=== PATIENT | female | born 1950 | race Hispanic/Latino ===

== ENCOUNTER 2017-12-10 17:16 | Inpatient (IN) | payer MEDICARE, OTHER ==
[~2017-12-10] VITALS: Ht 160 cm; Wt 125.4 kg
[2017-12-10] MEDS ORDERED: SODIUM CHLORIDE 0.9% 1000ML 1,000 ML IV STA (17:21)
[2017-12-10] MEDS ORDERED: VANCOMYCIN 1GM/NS 250 ML 250 ML IV ONE (17:30)
[2017-12-10] MEDS ORDERED: ONDANSETRON HCL INJ 2 MG/ML VIAL IV PRN (17:30)
[2017-12-10] MEDS ORDERED: DILTIAZEM HCL 5 MG/ML 5 ML VIAL IV ONE (17:30)
[2017-12-10] MEDS ORDERED: IBUPROFEN 400 MG TAB PO PRN (17:30)
[2017-12-10] MEDS ORDERED: CEFTRIAXONE SOD 1 GM VIAL IV ONE (17:30)
[2017-12-10] MEDS ORDERED: DIPHENHYDRAMINE HCL INJ 50 MG/ML VIAL IV PRN (17:30)
[2017-12-10] MEDS ORDERED: NIFEDIPINE ER30 M1 PO (17:52)
[2017-12-10] MEDS ORDERED: HYDRALAZINE HCL25 MG PO (17:52)
[2017-12-10] MEDS ORDERED: WARFARIN SODIU2.5 MG PO (17:52)
[2017-12-10] MEDS ORDERED: FUROSEMIDE40 MG PO (17:52)
[2017-12-10] MEDS ORDERED: OMEPRAZOLE40 MG PO (17:52)
[2017-12-10] MEDS ORDERED: GABAPENTIN100 MG PO (17:52)
[2017-12-10] MEDS ORDERED: METOPROLOL TART50 MG PO (17:52)
[2017-12-10] MEDS ORDERED: ASPIRIN EC81 MG PO (17:52)
[2017-12-10 17:55] LABS: ABG HCO3 23 mmol/L (23-28); ABG PCO2 31 mmHg (41-51); ABG PH 7.48 (7.31-7.41); ABG PO2 66 mmHg (80-105)
[2017-12-10 17:59] LABS: BASOPHILS # (AUTO) 0.1 (0.0-0.1); BASOPHILS % 0.3 % (0.0-1.0); EOSINOPHILS # (AUTO) 0.2 (0.0-0.4); EOSINOPHILS % 0.9 % (0.0-6.0); LYMPHOCYTES # (AUTO) 3.1 (1.0-3.2); LYMPHOCYTES % 17.6 % (18.0-39.1); MEAN CORPUSCULAR HEMOGLOBIN 29.3 pg (28-32); MEAN CORPUSCULAR HGB CONC 32.5 g/dL (31-35); MEAN CORPUSCULAR VOLUME 90.1 fL (81-99); MONOCYTES # (AUTO) 0.6 (0.2-0.8); MONOCYTES % 3.4 % (4.4-11.3); NEUTROPHILS # (AUTO) 13.8 (2.1-6.9); NEUTROPHILS % 77.5 % (38.7-80.0); PLATELET COUNT 274 x10e3/uL (140-360); RED BLOOD COUNT 4.44 x10e6/uL (3.6-5.1)
[2017-12-10] MEDS ORDERED: ACETAMINOPHEN 1000 MG/100 ML IV ONE (18:00)
[2017-12-10 18:05] LABS: BILIRUBIN,URINE NEGATIVE (NEGATIVE); CLARITY,URINE CLEAR (CLEAR); COLOR,URINE STRAW (YELLOW); KETONES,URINE NEGATIVE (NEGATIVE); LEUKOCYTE ESTERASE ,URINE NEGATIVE (NEGATIVE); NITRITE,URINE NEGATIVE (NEGATIVE); PROTEIN,URINE DIPSTICK TRACE (NEGATIVE); URINE UROBILINOGEN 0.2 mg/dL (0.2 - 1)
[2017-12-10 18:13] LABS: EPITHELIAL CELLS,URINE FEW /LPF
[2017-12-10 18:15] LABS: RBC,URINE 21-50 /HPF (0-5); WBC,URINE (MAN) 0-5 /HPF (0-5)
[2017-12-10 18:15] LABS: ALBUMIN 3.8 g/dL (3.5-5.0); ALBUMIN/GLOBULIN RATIO 0.7 (0.8-2.0); ANION GAP 17.6 mmol/L (8-16); CALCIUM 9.3 mg/dL (8.4-10.2); CREATININE, SERUM 1.04 mg/dL (0.57-1.11); POTASSIUM 5.6 mmol/L (3.5-5.1)
[2017-12-10 18:17] LABS: INR 1.83; PARTIAL THROMBOPLASTIN TIME 32.9 seconds (23.8-35.5); PROTHROMBIN TIME 19.9 seconds (11.9-14.5)
[2017-12-10 18:22] LABS: CREATINE KINASE MB 3.7 ng/mL (0-5.0)
--- NOTE | 2017-12-10 18:23 | Diagnostic Imaging Report ---
Examination: Single AP view of the chest. COMPARISON: None. INDICATION: The liver for pneumonia DISCUSSION: Lines/tubes: None. Lungs: No consolidative pneumonia. Underpenetrated chest radiograph. Prominence of the central pulmonary vasculature. Pleura: No effusion or pneumothorax. Heart and mediastinum: Mildly enlarged heart. Bones and soft tissues: No acute bony abnormalities. Degenerative changes in the thoracic spine. IMPRESSION: 1. Cardiomegaly with central venous congestion Signed by: Dr. Dex Valdes M.D. on 12/10/2017 6:19 PM
[2017-12-10] MEDS ORDERED: VANCOMYCIN 1GM/NS 250 ML 250 ML IV SCH (18:45)
[2017-12-10] MEDS ORDERED: SODIUM CHLORIDE 0.9% 1000ML 1,000 ML ONE (18:53)
[2017-12-10] MEDS: SODIUM CHLORIDE 0.9% 1000ML 1,000 ML IV SCH ×2 (18:54→20:43)
[2017-12-10] MEDS ORDERED: SODIUM CHLORIDE 0.9% 1000ML 1,000 ML IV ONE (19:00)
[2017-12-10] MEDS: HYDROMORPHONE 1MG/1ML INJ IV PRN (19:47)
[2017-12-10] MEDS: VANCOMYCIN 1GM/NS 250 ML 250 ML IV SCH (22:32)
[2017-12-10] MEDS: DILTIAZEM HCL 100 ML IV PRN (22:32)
[2017-12-10] MEDS: ACETAMINOPHEN 325 MG TAB PO PRN (22:33)
[2017-12-11] VITALS (78 sets, daily range): BP systolic 108–149; BP diastolic 56–90
[2017-12-11] MEDS: PIPER-TAZ 3.375 GM 50 ML IV SCH ×4 (01:22→17:41)
--- NOTE | 2017-12-11 03:43 | Diagnostic Imaging Report ---
EXAMINATION: CHEST XRAY LINE PLACEMENT INDICATION: PICC line placement COMPARISON: 12/10/2017 FINDINGS: TUBES and LINES: Right upper extremity PICC line is visualized with tip at the level of the superior SVC LUNGS: Lungs are not well inflated. There are bibasilar atelectasis. There is mild prominence of the central pulmonary vasculature, consistent with pulmonary venous congestion. PLEURA: No pleural effusion or pneumothorax. HEART AND MEDIASTINUM: Cardiac size is moderately enlarged. There are atherosclerotic calcifications within the aorta. BONES AND SOFT TISSUES: No acute osseous lesion. Soft tissues are unremarkable. UPPER ABDOMEN: No free air under the diaphragm. IMPRESSION: Moderate enlargement of the heart without evidence of decompensation Signed by: Dr. Stanislaw Man M.D. on 12/11/2017 3:40 AM
[2017-12-11] MEDS: SODIUM CHLORIDE 0.9% 1000ML 1,000 ML IV SCH ×2 (04:41→11:04)
[2017-12-11] MEDS ORDERED: SODIUM CHLORIDE 0.9% 100 ML ONE (06:23)
[2017-12-11] MEDS ORDERED: DILTIAZEM HCL VIAL 5 ML ONE (06:24)
[2017-12-11] MEDS ORDERED: DILTIAZEM HCL ONE (06:25)
[2017-12-11 06:27] LABS: BASOPHILS # (AUTO) 0.1 (0.0-0.1); BASOPHILS % 0.2 % (0.0-1.0); HEMATOCRIT 32.8 % (34.2-44.1); HEMOGLOBIN 10.7 g/dL (12.0-16.0); LYMPHOCYTES # (AUTO) 1.4 (1.0-3.2); LYMPHOCYTES % 5.4 % (18.0-39.1); MEAN CORPUSCULAR HEMOGLOBIN 29.5 pg (28-32); MEAN CORPUSCULAR HGB CONC 32.6 g/dL (31-35); MEAN CORPUSCULAR VOLUME 90.4 fL (81-99); MONOCYTES # (AUTO) 0.8 (0.2-0.8); MONOCYTES % 3.2 % (4.4-11.3); NEUTROPHILS # (AUTO) 23.6 (2.1-6.9); NEUTROPHILS % 89.3 % (38.7-80.0); PLATELET COUNT 203 x10e3/uL (140-360); RED BLOOD COUNT 3.63 x10e6/uL (3.6-5.1); RED CELL DISTRIBUTION WIDTH 15.3 % (11.7-14.4)
[2017-12-11 06:39] LABS: ALANINE AMINOTRANSFERASE 14 IU/L (0-55); ALBUMIN 2.9 g/dL (3.5-5.0); ALBUMIN/GLOBULIN RATIO 0.8 (0.8-2.0); ALKALINE PHOSPHATASE 74 IU/L (40-150); ANION GAP 10.4 mmol/L (8-16); BLOOD UREA NITROGEN 23 mg/dL (7-26); BUN/CREATININE RATIO 25 (6-25); CARBON DIOXIDE 22 mmol/L (22-29); CHLORIDE 107 mmol/L (98-107); CREATININE, SERUM 0.91 mg/dL (0.57-1.11); EST GLOMERULAR FILTRATION RATE > 60 ML/MIN (60-); GLUCOSE 135 mg/dL (74-118); MAGNESIUM 1.2 MG/DL (1.3-2.1); PHOSPHORUS 2.9 MG/DL (2.3-4.7); POTASSIUM 3.4 mmol/L (3.5-5.1); SODIUM 136 mmol/L (136-145)
[2017-12-11 06:48] LABS: INR 2.21
[2017-12-11 06:49] LABS: PARTIAL THROMBOPLASTIN TIME 37.1 seconds (23.8-35.5)
[2017-12-11] MEDS: DILTIAZEM HCL 100 ML IV PRN (06:56)
[2017-12-11 07:55] LABS: FREE THYROXINE INDEX 1.9883 (1.4-3.8); THYROID STIMULATING HORMONE 0.759 uIU/mL (0.350-4.940)
[2017-12-11] MEDS: METOPROLOL TARTRATE 50 MG TAB PO SCH ×2 (09:00→17:41)
[2017-12-11] MEDS: PANTOPRAZOLE SOD 40 MG TABEC PO SCH (09:00)
[2017-12-11 10:02] LABS: BAND NEUTROPHILS % (MANUAL) 21 %; LYMPHOCYTES % (MANUAL) 5 % (19-48); MONOCYTES % (MANUAL) 1 % (3.4-9.0); NEUTROPHILS % (MANUAL) 73 % (40-74); PLATELET MORPHOLOGY COMMENT NORMAL; RBC MORPHOLOGY COMMENT NORMAL
[2017-12-11 10:03] LABS: PLATELET ESTIMATE ADEQUATE
[2017-12-11] MEDS ORDERED: CITRATE OF MAGNESIA 300ML BOTTLE PO PRN (11:30)
[2017-12-11] MEDS ORDERED: LACTULOSE SYRUP 20 GM/30 ML UDC PO PRN (11:30)
[2017-12-11] MEDS: VANCOMYCIN 1GM/NS 250 ML 250 ML IV SCH (11:43)
--- NOTE | 2017-12-11 12:55 | History and Physical ---
This 67-year-old lady comes in feeling weak. HISTORY OF PRESENT ILLNESS: Ms. Kerry Mireles is a 67-year-old lady with a history of atrial fibrillation. She was in her usual state of health until the patient started to have some weakness and shortness of breath, which exacerbated and the shortness of breath got worse. On sitting up, the patient did feel better. She had some orthopnea and dyspnea on exertion. The patient also had some chest pain, but she could not quantify it, and it was waxing and waning. The patient did have elevated temperature when she came into the emergency room. She was admitted to the hospital for sepsis and also for possible CHF. PAST MEDICAL HISTORY 1. History of hypertension. 2. History of neuropathy. 3. History of reflux esophagitis. 4. History of atrial fibrillation as mentioned above. HOME MEDICATIONS 1. Aspirin 81 mg. 2. 3. Gabapentin 100 mg daily. 4. Hydralazine 25 mg 3 times a day. 5. Metoprolol 50 mg twice a day. 6. Nifedipine 30 mg daily. 7. Omeprazole 40 mg. 8. Warfarin 2.5 mg daily. PAST SURGICAL HISTORY: Noncontributory. REVIEW OF SYSTEMS: Positive for chest pain. Positive for shortness of breath. No nausea or vomiting. Positive for abdominal pain. No melena. No hematochezia. No hematemesis. No constipation. No diarrhea. No back pain. No depression or anxiety. No diplopia. No blurry vision. No paresthesia. No hyperesthesias. No or seizure. Positive for some dizziness. SOCIAL HISTORY: No EtOH. No IV drug abuse. No history of smoking either. PHYSICAL EXAMINATION GENERAL: Patient is alert and oriented, talking. She is a little cold. VITALS: Temperature is 100.1. Pulse is 59 beats per minute. Respiratory rate is 16. Blood pressure 132/72. O2 flow is 2 L with 94% oxygen. HEENT: Normocephalic and atraumatic. The pupils are reactive to light and accommodation. CV: S1 and S2, irregular, normal rhythm. ABDOMEN: Tender diffusely. EXTREMITIES: Positive for edema and also tender. LABS: Her initial sodium was 136, potassium 3.4, glucose 134, lactic acid 23.5, 11.4. Magnesium was 1.2 first and now is 2.4. AST and ALT were normal. BNP was 162.92. MICROBIOLOGY: Urine culture and blood cultures are pending. IMAGING STUDIES: A PICC line was placed. Chest x-ray showed signs of cardiomegaly with vascular congestion. SUMMARY: Patient was admitted for severe sepsis. Patient is on vancomycin and Zosyn 3.375 mg q.6 h. I will continue monitoring the patient. Consult with ID has been done. Also, consult with cardiology has been done. The patient also has history of acute respiratory failure. Will keep oxygen going at this time. Consults are already made. I will continue to monitor the patient. IV fluids have been cut down. Will order an echocardiogram. Also, we did order TSH, T4 and T3, and vancomycin trough will be done. A CT of the abdomen and pelvis has also been ordered. Further recommendations depending on clinical course. Will also hold her warfarin until the CT results come back and trend her INRs. DVT prophylaxis with SCDs will be done. Further recommendations per clinical course. Will continue to monitor the patient in the ICU. Job#: [id number]
--- NOTE | 2017-12-11 13:04 | Consultation ---
DATE OF CONSULTATION: PULMONARY CONSULTATION A patient of Dr. 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 Had a similar episode last week. It is accompanied by shortness of breath, and indeed she was hypoxic on admission with O2 saturation of 88%. She does have a history of snoring and daytime hypersomnolence. She has a history of swelling, history of atrial fibrillation, chronic constipation, back and leg pain. NO KNOWN ALLERGIES. Her medications include aspirin, Lasix, Neurontin, Apresoline, nifedipine, warfarin, Lopressor, and omeprazole. She has had lumpectomy and back surgery. Family history positive for diabetes and hypertension. She does not smoke or drink. Born in [place], [place]. PHYSICAL EXAMINATION VITAL SIGNS: Temperature on admission 103.4, pulse 80, blood pressure 113/66. HEAD: Normocephalic, atraumatic. EYES: Extraocular movements intact. LUNGS: Basilar rales. HEART: Irregular rhythm. ABDOMEN: Obese. EXTREMITIES: Somewhat tender and edematous. IMPRESSION: One of 1. Pneumonia, gram-positive probable pneumococcus. 2. Chronic back pain is of some concern, particularly apparently in view of the positive blood cultures. 3. Some obstructive sleep apneas suspected. 4. Atrial fibrillation. 5. Congestive heart failure. PLAN: Continue the vancomycin and Zosyn that she is currently on, pending the ID of the positive culture. A trial of BiPAP. A CT of the chest and bone scan. Thank you for this kind referral. Job#: [id number] [facility]
--- NOTE | 2017-12-11 13:20 | Diagnostic Imaging Report ---
EXAM: CT Chest, Abdomen and Pelvis WITH contrast INDICATION: Sepsis. Chest and abdominal pain. COMPARISON: None. TECHNIQUE: Chest, abdomen and pelvis were scanned utilizing a multidetector helical scanner from the lung apex to the pubic symphysis before and after administration of IV contrast. Coronal and sagittal reformations were obtained. Routine protocol was performed. Scan was performed when during portal venous phase. IV CONTRAST: 150 mL of Omnipaque 300 ORAL CONTRAST: Water RADIATION DOSE: Total DLP: 1216.21 mGy*cm Estimated effective dose: (DLP x 0.015 x size factor) mSv COMPLICATIONS: None FINDINGS: LINES and TUBES: Right upper extremity PICC with distal tip in the cavoatrial junction. LUNGS AND AIRWAYS: The lungs are unremarkable. Airways are normal. PLEURA: Trace left pleural effusion. Bibasilar subsegmental atelectasis. HEART AND MEDIASTINUM: The thyroid gland is normal. Small infrahilar lymph nodes bilaterally, the largest on the right measuring 1.2 cm on image 32 series 2.. The heart is normal in size.. There is no pericardial effusion. There are mild atherosclerotic calcifications in the aorta and coronary arteries. HEPATOBILIARY: Mildly lobulated hepatic contour associated with mild atrophy of the medial segment of the left hepatic lobe nonspecific, however, may reflect early cirrhotic morphology. No focal hepatic lesions. No biliary ductal dilation. GALLBLADDER: No radio-opaque stones or sludge. No wall thickening. SPLEEN: No splenomegaly. PANCREAS: No focal masses or ductal dilatation. ADRENALS: No adrenal nodules KIDNEYS/URETERS: Kidneys enhance symmetrically. No hydronephrosis. No cystic or solid mass lesions. No stones. GI TRACT: No abnormal distention, wall thickening, or evidence of bowel obstruction. Appendix is normal. Scattered colonic diverticulosis without diverticulitis. PELVIC ORGANS/BLADDER: Urinary bladder decompressed by Gaxiola catheter. LYMPH NODES: Mildly prominent periportal lymph nodes, the largest measuring 1.3 cm in short axis on image 60 are nonspecific, possibly reactive. VESSELS: There is moderate atherosclerotic disease in the aorta and major arterial branches. PERITONEUM / RETROPERITONEUM: No free air or fluid. BONES: Lower cervical fusion hardware. SOFT TISSUES: Unremarkable. IMPRESSION: 1. No acute thoracic abdominal pelvic abnormality. No abscess formation or finding to explain sepsis. 2. Colonic diverticulosis without acute diverticulitis. Signed by: Dr. Anai Cm M.D. on 12/11/2017 1:17 PM
--- NOTE | 2017-12-11 13:46 | Consultation ---
DATE OF CONSULTATION: December 11, 2017 CARDIOLOGY CONSULTATION REASON FOR CONSULTATION: Atrial fibrillation with rapid ventricular response. CHIEF COMPLAINT: Generalized pain, shortness of breath, palpitations, fevers and chills. HPI: This is a 67-year-old female with history of chronic AFib on Coumadin and hypertension, who presented with fevers, chills, generalized musculoskeletal pain and a headache to the ER. On presentation, her sats were 88%, with heart rates in the 130s and blood pressure in the 200s. She had a fever up to 103 degrees. White count of 18. We are consulted for management of her atrial fibrillation. PAST MEDICAL HISTORY 1. Chronic atrial fibrillation on Coumadin. 2. Hypertension. 3. Chronic lower extremity edema. 4. Obesity. 5. Hypertension. 6. Hyperlipidemia. FAMILY HISTORY: No family history of early CAD. SOCIAL HISTORY: Patient denies smoking, drinking or using illicit drugs currently. PHYSICAL EXAMINATION VITAL SIGNS: Heart rate 86. Temperature 98.8. Respiratory rate 19. Blood pressure 123/69, satting 92% on 2 L nasal cannula. EYES: Conjunctivae are clear. EARS, NOSE, MOUTH AND THROAT: Normal mucosa. No pallor or bleeding. NECK: Cannot assess for JVD due to body habitus. MUSCULOSKELETAL: Normal muscle tone and strength. No atrophy or abnormal movements. EXTREMITIES: No clubbing or cyanosis. SKIN: There are venous stasis changes in bilateral lower extremities. However, no ulcer is noted. GENERAL: Well-developed, obese female. CARDIOVASCULAR: Could not palpate PMI due to body habitus. Irregular S1 and S2. No murmurs, rubs or gallops are heard. Normal carotid pulses. There is 3+ peripheral edema and bilateral varicosities in lower extremities. RESPIRATORY: Patient is in no respiratory distress. Lungs are clear to auscultation bilaterally. ABDOMEN: Obese, soft, nontender. No hepatosplenomegaly. NEURO AND PSYCH: The patient is alert and oriented to person, place and time. Normal affect. MEDICATIONS: Patient is on diltiazem IV drip titrated to heart rate, metoprolol tartrate 50 mg p.o. twice a day, and antibiotics at this time. LABS: All labs reviewed. Notable for normal cardiac enzymes. BNP 162. The patient's white count is 18, increasing to 26 this morning. IMAGING: Chest x-ray shows cardiomegaly with mild central venous congestion. TELEMETRY: Shows rate-controlled atrial fibrillation. EKG: Atrial fibrillation without any significant ST-T changes to suggest ischemia. ASSESSMENT AND PLAN 1. Atrial fibrillation with rapid ventricular response. 2. Severe sepsis. 3. Hypertension. 4. Hyperlipidemia. 5. Venous insufficiency in bilateral lower extremities. 6. Bilateral lower extremity edema. PLAN: Start p.o. metoprolol today and wean off the IV diltiazem drip. Okay to resume her Coumadin from a cardiology standpoint. Will not diurese at this time given the severe sepsis. Once the patient has recovered from infectious issues, she will need a diuretic regimen to manage her edema. Will also order an echocardiogram to look at her LV function and rule out any vegetations. Thank you for this consult. We will continue to follow. Job#: [id number] [facility]
[2017-12-11] MEDS: DOCUSATE SODIUM LIQD 100 MG/10 ML UDC NG SCH (17:00)
[2017-12-11] MEDS ORDERED: IOPAMIDOL 370 MG/ML 200 ML INFUS..BTL INJ ONE (18:36)
[2017-12-11] MEDS ORDERED: SODIUM CHLORIDE 0.9% 50ML 50 ML ONE (18:36)
[2017-12-11] MEDS: VANCOMYCIN HCL 1.5 GM in SODIUM CHLORIDE 0.9% 250ML 300 ML IV SCH (22:46)
[2017-12-12] VITALS (77 sets, daily range): BP systolic 105–171; BP diastolic 50–107
[2017-12-12] MEDS: PIPER-TAZ 3.375 GM 50 ML IV SCH ×4 (00:58→18:15)
[2017-12-12] MEDS: SODIUM CHLORIDE 0.9% 1000ML 1,000 ML IV SCH ×2 (01:22→18:16)
--- NOTE | 2017-12-12 01:27 | Consultation ---
DATE OF CONSULTATION: December 11, 2017 HISTORY OF PRESENT ILLNESS: This is a 67-year-old lady comes in with sensation of not feeling well, fever, and chills. The patient was in usual state of health. She went to bed, woke up, some fever, chills, not feeling well and in general feeling really bad. She came into the emergency room. She was evaluated and admitted. This patient has history of hypertension, neuropathy, obesity, reflux esophagitis, and atrial fibrillation. PAST SURGICAL HISTORY: Denies. ALLERGIES: NKA. SOCIAL HISTORY: There is no smoking, drug abuse, or alcohol abuse. FAMILY HISTORY: Hypertension and diabetes. HOME MEDICATIONS: Reviewed. Aspirin, gabapenting, hydralazine, and Coumadin. REVIEW OF SYSTEMS HEENT: Negative. PULMONARY: Negative. CARDIAC: Negative. : Negative. SKIN: There is no rash. All systems, 14 points, within normal limits. MEDICATION LIST: Reviewed. PHYSICAL EXAMINATION GENERAL: She is currently alert, oriented, does not seem to be in acute distress. VITALS: Stable, currently afebrile. HEENT: Normocephalic, not icteric. NECK: Supple. CHEST: Clear. HEART: S1 and S2. No murmur. ABDOMEN: Soft. Bowel sounds present. EXTREMITIES: No edema. SKIN: There is no rash. JOINTS: No erythema or edema. LAB DATA: Reviewed. The blood cultures came back gram-positive cocci. IMPRESSION: Sepsis, present on admission, bacteremia, gram-positive cocci, etiology unclear. Continue vancomycin. Will adjust the dose with 50 mg per kg IV piggyback q.12 h. Continue with Zosyn. Recheck complete blood count. Recheck chem panel. Will identify the bacteria. Discussed with the patient, discussed with family. Echocardiogram has been ordered. Her laboratory data otherwise all reviewed. Chest x-ray was negative. Ultrasound of the abdomen . CT abdomen and pelvis was negative. Will re-assess in the morning. Job#: [id number]
[2017-12-12] MEDS: DILTIAZEM HCL 100 ML IV PRN ×2 (03:27→18:17)
[2017-12-12] MEDS: HYDROMORPHONE 1MG/1ML INJ IV PRN ×2 (03:29→14:54)
[2017-12-12 06:15] LABS: ALANINE AMINOTRANSFERASE 14 IU/L (0-55); ALBUMIN 2.9 g/dL (3.5-5.0); ALBUMIN/GLOBULIN RATIO 0.7 (0.8-2.0); ALKALINE PHOSPHATASE 79 IU/L (40-150); ANION GAP 9.8 mmol/L (8-16); BLOOD UREA NITROGEN 19 mg/dL (7-26); BUN/CREATININE RATIO 22 (6-25); CALCIUM 8.5 mg/dL (8.4-10.2); CARBON DIOXIDE 23 mmol/L (22-29); CHLORIDE 111 mmol/L (98-107); CREATININE, SERUM 0.86 mg/dL (0.57-1.11); EST GLOMERULAR FILTRATION RATE > 60 ML/MIN (60-); GLUCOSE 151 mg/dL (74-118); MAGNESIUM 1.6 MG/DL (1.3-2.1); POTASSIUM 3.8 mmol/L (3.5-5.1); SODIUM 140 mmol/L (136-145)
[2017-12-12 06:46] LABS: BASOPHILS % 0.2 % (0.0-1.0); EOSINOPHILS # (AUTO) 0.1 (0.0-0.4); EOSINOPHILS % 0.8 % (0.0-6.0); HEMATOCRIT 33.6 % (34.2-44.1); HEMOGLOBIN 10.6 g/dL (12.0-16.0); LYMPHOCYTES # (AUTO) 1.8 (1.0-3.2); LYMPHOCYTES % 11.6 % (18.0-39.1); MEAN CORPUSCULAR HEMOGLOBIN 29.3 pg (28-32); MEAN CORPUSCULAR HGB CONC 31.5 g/dL (31-35); MEAN CORPUSCULAR VOLUME 92.8 fL (81-99); MONOCYTES # (AUTO) 0.5 (0.2-0.8); MONOCYTES % 3.3 % (4.4-11.3); NEUTROPHILS # (AUTO) 12.8 (2.1-6.9); NEUTROPHILS % 83.5 % (38.7-80.0); PLATELET COUNT 187 x10e3/uL (140-360); RED BLOOD COUNT 3.62 x10e6/uL (3.6-5.1); RED CELL DISTRIBUTION WIDTH 15.5 % (11.7-14.4)
[2017-12-12] MEDS: ONDANSETRON HCL INJ 2 MG/ML VIAL IV PRN ×3 (08:35→18:35)
[2017-12-12] MEDS: DOCUSATE SODIUM LIQD 100 MG/10 ML UDC NG SCH ×2 (10:13→17:00)
[2017-12-12] MEDS: PANTOPRAZOLE SOD 40 MG TABEC PO SCH (10:14)
[2017-12-12] MEDS: MAGNESIUM OXIDE 400 MG TAB PO SCH (10:14)
[2017-12-12] MEDS: METOPROLOL TARTRATE 50 MG TAB PO SCH ×2 (10:14→18:15)
[2017-12-12] MEDS: NYSTATIN 15 GM POWDER UD BTL TOP SCH ×2 (11:30→18:15)
[2017-12-12] MEDS: VANCOMYCIN HCL 1.5 GM in SODIUM CHLORIDE 0.9% 250ML 300 ML IV SCH ×2 (14:22→21:15)
--- NOTE | 2017-12-12 16:28 | Diagnostic Imaging Report ---
History: Back pain and bacteremia Comparison studies: None Technique: Axial images were obtained from T12 through the sacrum with IV contrast. Coronal and sagittal images reconstructed from the axial data. Intravenous contrast: Yes Findings: Number of non-rib bearing vertebral bodies: 5 Alignment: Normal lordosis. No scoliosis. Soft tissues: Atherosclerotic calcifications of the abdominal aorta and branches. Paraspinal muscles: Fatty Infiltration of the paraspinal musculature secondary to moderate atrophy Vertebrae: No fractures, infection or neoplasm. Degenerative changes: L1-L2: No abnormalities. L2-L3: Asymmetric right disc bulge, right facet hypertrophy and posterior foraminal disc osteophyte complex on the right results in no significant canal stenosis and severe right foraminal narrowing. L3-L4: Mild disc bulge, mild facet hypertrophy and ligamentum flavum thickening results in mild canal stenosis and mild right foraminal narrowing. Mild vacuum disc phenomenon in the posterior aspect of the intervertebral disc L4-L5: Diffuse disc osteophyte complex, moderate facet hypertrophy and ligamentum flavum thickening results in moderate canal stenosis, and moderate bilateral foraminal narrowing L5-S1: Diffuse disc bulge and moderate bilateral facet hypertrophy results in mild canal stenosis, mild right and moderate left foraminal narrowing. Sacroiliac joints: No degenerative changes. IMPRESSION: 1. No evidence of the spondylodiscitis. 2. Moderate degenerative canal stenosis and moderate bilateral foraminal narrowing at L4-L5. 3. Severe degenerative right foraminal narrowing at L2-L3. Moderate left foraminal narrowing at L5-S1 Signed by: DR Alexander Ortega M.D. on 12/12/2017 4:25 PM
[2017-12-12] MEDS: WARFARIN SOD 5 MG TAB PO SCH (18:15)
[2017-12-12] MEDS: ACETAMINOPHEN 325 MG TAB PO PRN (18:35)
--- NOTE | 2017-12-12 20:24 | Progress Note ---
DATE: December 12, 2017 CARDIOLOGY PROGRESS NOTE SUBJECTIVE: No major events overnight. Patient says that she overall feels much better today than yesterday. REVIEW OF SYSTEMS: Ten-point review of systems is as above otherwise negative. OBJECTIVE: VITAL SIGNS: Temperature 99.7, heart rate 83, respiratory rate 20, blood pressure 149/71, satting 95% on 2 L nasal cannula. GENERAL: Well-developed, obese female. CARDIOVASCULAR: PMI not palpated due to body habitus. Irregular S1 and S2. No murmurs, rubs or gallops heard. Normal carotid pulses. Normal radial pulses. ABDOMEN: Obese, soft, nontender, nondistended. RESPIRATORY: Lungs are clear to auscultation bilaterally. No respiratory distress. NEURO AND PSYCH: Alert and oriented to person, place and time. Normal affect. LABORATORY DATA: Reviewed. Notable for white count decreasing from 26 to 15. IMAGING DATA: Reviewed. Spine CT shows no evidence of spondylodiskitis, otherwise degenerative changes of the spine. Echocardiogram: Echocardiogram read and reviewed shows was a very difficulty study, poor quality images; however, shows overall preserved LV function with trace pericardial effusion and no significant valvular abnormalities. ASSESSMENT: 1. Atrial fibrillation with rapid ventricular response. 2. Severe sepsis. 3. Hypertension. 4. Hyperlipidemia. 5. Venous insufficiency in bilateral lower extremities. 6. Bilateral lower extremity edema. PLAN: Patient is now off of diltiazem drip and only on oral metoprolol for rate control. If her blood pressure and heart rate remains stable, please resume her diuretics starting tomorrow. Echocardiogram reviewed as above. Thank you for this consult. Will continue to follow. Job#: [id number] [facility] [employer] [facility] [employer] [facility]
[2017-12-13] VITALS (30 sets, daily range): BP systolic 122–166; BP diastolic 62–98
[2017-12-13] MEDS: PIPER-TAZ 3.375 GM 50 ML IV SCH ×2 (00:30→05:32)
[2017-12-13] MEDS: SODIUM CHLORIDE 0.9% 1000ML 1,000 ML IV SCH (02:00)
[2017-12-13] MEDS ORDERED: ALBUTEROL/IPRATROPIUM 3 ML NEB NEB ONE (04:45)
[2017-12-13 04:57] LABS: BASOPHILS % 0.3 % (0.0-1.0); EOSINOPHILS # (AUTO) 0.3 (0.0-0.4); HEMATOCRIT 32.2 % (34.2-44.1); LYMPHOCYTES # (AUTO) 2.1 (1.0-3.2); LYMPHOCYTES % 23.3 % (18.0-39.1); MEAN CORPUSCULAR HEMOGLOBIN 29.1 pg (28-32); MEAN CORPUSCULAR HGB CONC 31.1 g/dL (31-35); MEAN CORPUSCULAR VOLUME 93.6 fL (81-99); MONOCYTES # (AUTO) 0.4 (0.2-0.8); MONOCYTES % 4.3 % (4.4-11.3); NEUTROPHILS # (AUTO) 6.1 (2.1-6.9); NEUTROPHILS % 68.8 % (38.7-80.0); PLATELET COUNT 173 x10e3/uL (140-360); RED BLOOD COUNT 3.44 x10e6/uL (3.6-5.1); RED CELL DISTRIBUTION WIDTH 15.4 % (11.7-14.4)
[2017-12-13 05:08] LABS: INR 1.67; PROTHROMBIN TIME 18.5 seconds (11.9-14.5)
[2017-12-13 05:20] LABS: ALANINE AMINOTRANSFERASE 12 IU/L (0-55); ALBUMIN 2.8 g/dL (3.5-5.0); ALBUMIN/GLOBULIN RATIO 0.7 (0.8-2.0); ALKALINE PHOSPHATASE 62 IU/L (40-150); ANION GAP 9.6 mmol/L (8-16); BLOOD UREA NITROGEN 14 mg/dL (7-26); BUN/CREATININE RATIO 17 (6-25); CALCIUM 8.5 mg/dL (8.4-10.2); CARBON DIOXIDE 25 mmol/L (22-29); CHLORIDE 109 mmol/L (98-107); CREATININE, SERUM 0.81 mg/dL (0.57-1.11); EST GLOMERULAR FILTRATION RATE > 60 ML/MIN (60-); GLUCOSE 119 mg/dL (74-118); POTASSIUM 3.6 mmol/L (3.5-5.1); SODIUM 140 mmol/L (136-145)
[2017-12-13] MEDS: ALBUTEROL/IPRATROPIUM 3 ML NEB NEB SCH ×3 (07:45→19:15)
[2017-12-13] MEDS: ONDANSETRON HCL INJ 2 MG/ML VIAL IV PRN (08:25)
[2017-12-13] MEDS: PANTOPRAZOLE SOD 40 MG TABEC PO SCH (08:25)
[2017-12-13] MEDS: NYSTATIN 15 GM POWDER UD BTL TOP SCH ×2 (08:25→17:16)
[2017-12-13] MEDS: ACETAMINOPHEN 325 MG TAB PO PRN ×2 (08:25→22:31)
[2017-12-13] MEDS: MAGNESIUM OXIDE 400 MG TAB PO SCH (08:26)
[2017-12-13] MEDS: DOCUSATE SODIUM LIQD 100 MG/10 ML UDC NG SCH ×2 (08:26→17:00)
[2017-12-13] MEDS: VANCOMYCIN HCL 1.5 GM in SODIUM CHLORIDE 0.9% 250ML 300 ML IV SCH (08:26)
--- NOTE | 2017-12-13 09:11 | Diagnostic Imaging Report ---
PROCEDURE: A single AP view of the chest. COMPARISON: Chest radiograph 12/11/17. INDICATIONS: SEPSIS/SHORTNESS OF BREATH FINDINGS: Lines/tubes: Right PICC terminating at the expected location of the mid SVC. Lungs: Low lung volumes. Mild patchy bibasilar opacities. Mild bilateral perihilar and interstitial opacities. No evidence of lobar consolidation. Pleura: There is no pleural effusion or pneumothorax. Heart and mediastinum: Moderate enlargement of the cardiac silhouette. Bones: No acute bony abnormality. Partially seen cervical fixation hardware. IMPRESSION: Moderate cardiomegaly with mild pulmonary interstitial edema. Patchy bibasilar opacities, likely atelectasis. No evidence of lobar pneumonia. Dictated by: JACKIE QUARLES M.D. on 12/13/2017 at 9:16 Electronically approved by: JACKIE QUARLES M.D. on 12/13/2017 at 9:16
[2017-12-13] MEDS: METOPROLOL TARTRATE 50 MG TAB PO SCH ×2 (09:28→17:16)
--- NOTE | 2017-12-13 10:27 | Diagnostic Imaging Report ---
PROCEDURE:X-RAY ABDOMEN - KUB COMPARISON:None. INDICATIONS:VOMITED FINDINGS: No dilated loops of bowel or abnormal air-fluid levels patterns. No definite calcifications are seen overlying the urinary system, although the upper abdomen is partially not included in the radiograph. Five non-rib bearing lumbar type vertebral bodies identified. Degenerative disc and facet degenerative changes, most pronounced at L4-L5 and L5-S1. CONCLUSION: Nonobstructive bowel gas pattern. Dictated by: JACKIE QUARLES M.D. on 12/13/2017 at 10:32 Electronically approved by: JACKIE QUARLES M.D. on 12/13/2017 at 10:32
[2017-12-13] MEDS: CEFTRIAXONE SOD 1 GM VIAL IV SCH ×2 (10:54→21:32)
[2017-12-13] MEDS: WARFARIN SOD 5 MG TAB PO SCH (17:16)
[2017-12-14] VITALS (7 sets, daily range): BP systolic 138–186; BP diastolic 89–110
[2017-12-14] MEDS: ALBUTEROL/IPRATROPIUM 3 ML NEB NEB SCH ×4 (00:25→19:15)
[2017-12-14] MEDS: HYDROMORPHONE 1MG/1ML INJ IV PRN (04:45)
[2017-12-14] MEDS: ONDANSETRON HCL INJ 2 MG/ML VIAL IV PRN ×3 (04:45→11:42)
[2017-12-14] MEDS ORDERED: FUROSEMIDE INJ 10 MG/ML 4 ML VIAL IV ONE (08:00)
[2017-12-14] MEDS: METOPROLOL TARTRATE 50 MG TAB PO SCH ×2 (08:04→16:50)
[2017-12-14] MEDS: LOSARTAN POTASSIUM 25 MG TAB PO SCH (08:04)
[2017-12-14] MEDS: NYSTATIN 15 GM POWDER UD BTL TOP SCH ×2 (08:10→16:50)
[2017-12-14] MEDS: PANTOPRAZOLE SOD 40 MG TABEC PO SCH (08:10)
[2017-12-14] MEDS: MAGNESIUM OXIDE 400 MG TAB PO SCH (09:00)
[2017-12-14] MEDS: DOCUSATE SODIUM LIQD 100 MG/10 ML UDC NG SCH ×2 (09:00→17:00)
[2017-12-14] MEDS: CEFTRIAXONE SOD 1 GM VIAL IV SCH ×2 (09:17→22:14)
[2017-12-14] MEDS: WARFARIN SOD 5 MG TAB PO SCH (16:50)
[2017-12-15] VITALS (8 sets, daily range): BP systolic 160–179; BP diastolic 77–115
[2017-12-15] MEDS: ALBUTEROL/IPRATROPIUM 3 ML NEB NEB SCH ×4 (00:30→19:15)
[2017-12-15] MEDS: LOSARTAN POTASSIUM 25 MG TAB PO SCH ×2 (04:10→08:42)
[2017-12-15 05:53] LABS: BASOPHILS % 0.4 % (0.0-1.0); EOSINOPHILS # (AUTO) 0.2 (0.0-0.4); HEMATOCRIT 30.7 % (34.2-44.1); HEMOGLOBIN 9.8 g/dL (12.0-16.0); LYMPHOCYTES # (AUTO) 1.5 (1.0-3.2); LYMPHOCYTES % 22.4 % (18.0-39.1); MEAN CORPUSCULAR HGB CONC 31.9 g/dL (31-35); MEAN CORPUSCULAR VOLUME 90.8 fL (81-99); MONOCYTES # (AUTO) 0.5 (0.2-0.8); MONOCYTES % 7.4 % (4.4-11.3); NEUTROPHILS # (AUTO) 4.5 (2.1-6.9); NEUTROPHILS % 66.5 % (38.7-80.0); PLATELET COUNT 178 x10e3/uL (140-360); RED BLOOD COUNT 3.38 x10e6/uL (3.6-5.1); RED CELL DISTRIBUTION WIDTH 14.5 % (11.7-14.4)
[2017-12-15 06:22] LABS: ALANINE AMINOTRANSFERASE 13 IU/L (0-55); ALBUMIN 2.8 g/dL (3.5-5.0); ALBUMIN/GLOBULIN RATIO 0.7 (0.8-2.0); ALKALINE PHOSPHATASE 66 IU/L (40-150); ANION GAP 11.1 mmol/L (8-16); BLOOD UREA NITROGEN 7 mg/dL (7-26); BUN/CREATININE RATIO 10 (6-25); CALCIUM 8.8 mg/dL (8.4-10.2); CARBON DIOXIDE 33 mmol/L (22-29); CHLORIDE 101 mmol/L (98-107); CREATININE, SERUM 0.73 mg/dL (0.57-1.11); EST GLOMERULAR FILTRATION RATE > 60 ML/MIN (60-); GLUCOSE 119 mg/dL (74-118); POTASSIUM 3.1 mmol/L (3.5-5.1); SODIUM 142 mmol/L (136-145)
[2017-12-15] MEDS: METOPROLOL TARTRATE 50 MG TAB PO SCH ×2 (08:42→17:05)
[2017-12-15] MEDS: PANTOPRAZOLE SOD 40 MG TABEC PO SCH (08:42)
[2017-12-15] MEDS: NYSTATIN 15 GM POWDER UD BTL TOP SCH ×2 (08:42→17:48)
[2017-12-15] MEDS: DOCUSATE SODIUM LIQD 100 MG/10 ML UDC NG SCH ×2 (08:42→17:00)
[2017-12-15] MEDS: MAGNESIUM OXIDE 400 MG TAB PO SCH (09:00)
[2017-12-15] MEDS: CEFTRIAXONE SOD 1 GM VIAL IV SCH ×2 (09:49→21:10)
[2017-12-15] MEDS ORDERED: POTASSIUM CHLORIDE 20 MEQ TAB CR PO STA (13:09)
[2017-12-15] MEDS: AMLODIPINE BESYLATE 5 MG TAB PO SCH (13:25)
[2017-12-15] MEDS ORDERED: FUROSEMIDE INJ 10 MG/ML 4 ML VIAL IV ONE (14:30)
--- NOTE | 2017-12-15 14:51 | Progress Note ---
DATE: December 15, 2017 CARDIOLOGY PROGRESS NOTE SUBJECTIVE: No major events overnight. Overall is feeling better. Mild shortness of breath. VITAL SIGNS: Temperature 98.1, heart rate 86, respiratory rate 20, blood pressure 160/97, satting 100% on 2 liters nasal cannula. PHYSICAL EXAMINATION GENERAL: Obese female in no acute distress. CARDIOVASCULAR: Difficult exam. Irregular S1 and S2. No murmur, rubs or gallops. Palpable carotid pulses. Peripheral edema 2+. No varicosities, no ulcers. LUNGS: Difficult exam. Clear to auscultation bilaterally. No respiratory distress. ABDOMEN: Very obese, soft, nontender. NEURO AND PSYCH: Alert and oriented to person, place and time. Normal affect. LABORATORY DATA: Reviewed. White count now has normalized to 6.75, hemoglobin 10 without any evidence of active bleeding. IMAGING DATA: Reviewed. TELEMETRY DATA: Reviewed. Shows rate-controlled atrial fibrillation. MEDICATIONS: All inpatient medications reviewed including cardiovascular medicines. ASSESSMENT AND PLAN 1. Paroxysmal atrial fibrillation. 2. Severe sepsis. 3. Hypertension. 4. Hyperlipidemia. 5. Venous insufficiency bilateral lower extremities. 6. Bilateral lower extremity edema. PLAN: Continue metoprolol 50 mg b.i.d. for rate control of her atrial fibrillation. Continue Coumadin for stroke prevention for atrial fibrillation. Her breathing is getting a little bit short, and given her lower extremity edema I will stop the KVO IV fluids, give 1 dose of Lasix 80 mg IV today and then restart her home dose of 40 mg oral Lasix starting tomorrow. Thank you for this consult. Will continue to follow. Job#: [id number] [facility]
[2017-12-15] MEDS: WARFARIN SOD 5 MG TAB PO SCH (17:05)
[2017-12-15] MEDS: ACETAMINOPHEN 325 MG TAB PO PRN (21:28)
[2017-12-16] VITALS (7 sets, daily range): BP systolic 144–182; BP diastolic 65–93
[2017-12-16] MEDS: ALBUTEROL/IPRATROPIUM 3 ML NEB NEB SCH ×4 (00:30→18:55)
[2017-12-16 05:52] LABS: BASOPHILS % 0.5 % (0.0-1.0); EOSINOPHILS # (AUTO) 0.3 (0.0-0.4); EOSINOPHILS % 4.7 % (0.0-6.0); HEMATOCRIT 31.2 % (34.2-44.1); HEMOGLOBIN 10.1 g/dL (12.0-16.0); LYMPHOCYTES # (AUTO) 2.1 (1.0-3.2); LYMPHOCYTES % 36.9 % (18.0-39.1); MEAN CORPUSCULAR HEMOGLOBIN 29.1 pg (28-32); MEAN CORPUSCULAR HGB CONC 32.4 g/dL (31-35); MEAN CORPUSCULAR VOLUME 89.9 fL (81-99); MONOCYTES # (AUTO) 0.5 (0.2-0.8); MONOCYTES % 8.1 % (4.4-11.3); NEUTROPHILS # (AUTO) 2.9 (2.1-6.9); NEUTROPHILS % 49.3 % (38.7-80.0); PLATELET COUNT 194 x10e3/uL (140-360); RED BLOOD COUNT 3.47 x10e6/uL (3.6-5.1); RED CELL DISTRIBUTION WIDTH 14.4 % (11.7-14.4)
[2017-12-16 06:17] LABS: INR 1.63; PROTHROMBIN TIME 18.2 seconds (11.9-14.5)
[2017-12-16 06:28] LABS: ALANINE AMINOTRANSFERASE 12 IU/L (0-55); ALBUMIN 2.9 g/dL (3.5-5.0); ALBUMIN/GLOBULIN RATIO 0.7 (0.8-2.0); ALKALINE PHOSPHATASE 72 IU/L (40-150); ANION GAP 11.1 mmol/L (8-16); BLOOD UREA NITROGEN 14 mg/dL (7-26); BUN/CREATININE RATIO 18 (6-25); CALCIUM 9.1 mg/dL (8.4-10.2); CARBON DIOXIDE 36 mmol/L (22-29); CHLORIDE 100 mmol/L (98-107); CREATININE, SERUM 0.78 mg/dL (0.57-1.11); EST GLOMERULAR FILTRATION RATE > 60 ML/MIN (60-); GLUCOSE 110 mg/dL (74-118); POTASSIUM 3.1 mmol/L (3.5-5.1); SODIUM 144 mmol/L (136-145)
[2017-12-16] MEDS ORDERED: POTASSIUM CHLORIDE 20 MEQ TAB CR PO NR ×2 (08:15→18:00)
[2017-12-16] MEDS: DOCUSATE SODIUM LIQD 100 MG/10 ML UDC NG SCH ×2 (09:00→17:00)
[2017-12-16] MEDS: PANTOPRAZOLE SOD 40 MG TABEC PO SCH (09:20)
[2017-12-16] MEDS: METOPROLOL TARTRATE 50 MG TAB PO SCH ×2 (09:20→17:47)
[2017-12-16] MEDS: LOSARTAN POTASSIUM 25 MG TAB PO SCH (09:20)
[2017-12-16] MEDS: AMLODIPINE BESYLATE 5 MG TAB PO SCH (09:20)
[2017-12-16] MEDS: MAGNESIUM OXIDE 400 MG TAB PO SCH (09:20)
[2017-12-16] MEDS: FUROSEMIDE 40 MG TAB PO SCH (09:20)
[2017-12-16] MEDS: NYSTATIN 15 GM POWDER UD BTL TOP SCH ×2 (09:20→17:48)
[2017-12-16] MEDS: CEFTRIAXONE SOD 1 GM VIAL IV SCH ×2 (10:25→22:00)
[2017-12-16] MEDS: PENCICLOVIR TP SCH ×3 (13:00→21:00)
[2017-12-16] MEDS: NYSTATIN SUSPENSION 5 ML UDC PO SCH ×3 (13:50→21:00)
--- NOTE | 2017-12-16 16:11 | Progress Note ---
DATE: December 16, 2017 CARDIOLOGY PROGRESS NOTE SUBJECTIVE: No major events overnight. Feels better today. No major complaints. No chest pain, shortness of breath, syncope or presyncope, no orthopnea or PND. REVIEW OF SYSTEMS: As above, otherwise negative. OBJECTIVE VITAL SIGNS: Temperature 98.2, pulse 87, respiratory rate 18, blood pressure 153/93, satting 99% on 2 liters nasal cannula. GENERAL: Obese, female, well developed. CARDIOVASCULAR: Difficult exam due to body habitus. PMI could not be palpated. Normal S1 and S2. Irregular. No murmur, rubs or gallops. Palpable carotid pulses. Palpable radial pulses. LUNGS: Clear to auscultation bilaterally. No respiratory distress. ABDOMEN: Obese, soft, nontender, nondistended. NEURO AND PSYCH: Alert and oriented to person, place and time. Normal affect. LABORATORY DATA: Reviewed. MEDICATIONS: Reviewed. IMAGING DATA: Reviewed. TELEMETRY DATA: Reviewed. ASSESSMENT 1. Paroxysmal atrial fibrillation. 2. Severe sepsis. 3. Hypertension. 4. Hyperlipidemia. 5. Venous insufficiency bilateral lower extremities. 6. Bilateral lower extremity edema. PLAN: Up-titrate metoprolol to 75 mg b.i.d. for rate control of her atrial fibrillation. Continue Coumadin for anticoagulation for paroxysmal atrial fibrillation. Breathing is better after Lasix yesterday. Continue 40 mg p.o. Lasix daily. Will up-titrate her losartan and amlodipine for better blood pressure control. Thank you for this consult. We will continue to follow. Job#: [id number]
[2017-12-16] MEDS: WARFARIN SOD 5 MG TAB PO SCH (17:47)
[2017-12-17] VITALS (7 sets, daily range): BP systolic 117–186; BP diastolic 57–104
[2017-12-17] MEDS: ALBUTEROL/IPRATROPIUM 3 ML NEB NEB SCH ×4 (00:25→19:25)
[2017-12-17] MEDS: LOSARTAN POTASSIUM 25 MG TAB PO SCH (04:53)
[2017-12-17] MEDS: METOPROLOL TARTRATE 50 MG TAB PO SCH ×2 (04:54→17:29)
[2017-12-17] MEDS: NYSTATIN SUSPENSION 5 ML UDC PO SCH ×5 (05:00→21:45)
[2017-12-17] MEDS: PENCICLOVIR TP SCH ×5 (05:00→21:45)
[2017-12-17 07:37] LABS: INR 1.63; PROTHROMBIN TIME 18.2 seconds (11.9-14.5)
[2017-12-17] MEDS ORDERED: HYDRALAZINE HCL 20 MG/ML VIAL IV PRN (07:45)
[2017-12-17] MEDS: ONDANSETRON HCL INJ 2 MG/ML VIAL IV PRN (08:25)
[2017-12-17] MEDS: DOCUSATE SODIUM LIQD 100 MG/10 ML UDC NG SCH ×2 (09:00→17:00)
[2017-12-17] MEDS: MAGNESIUM OXIDE 400 MG TAB PO SCH (09:15)
[2017-12-17] MEDS: FUROSEMIDE 40 MG TAB PO SCH (09:15)
[2017-12-17] MEDS: NYSTATIN 15 GM POWDER UD BTL TOP SCH ×2 (09:16→17:29)
[2017-12-17] MEDS: AMLODIPINE BESYLATE 10 MG TAB PO SCH (09:16)
[2017-12-17] MEDS: PANTOPRAZOLE SOD 40 MG TABEC PO SCH (09:16)
[2017-12-17] MEDS: CEFTRIAXONE SOD 1 GM VIAL IV SCH ×2 (10:21→21:45)
[2017-12-17] MEDS: ACETAMINOPHEN 325 MG TAB PO PRN (11:10)
--- NOTE | 2017-12-17 13:24 | Progress Note ---
DATE: December 17, 2017 CARDIOLOGY PROGRESS NOTE SUBJECTIVE: The patient reports that she had some chest pain earlier today in the setting of elevated blood pressure. Denies any shortness of breath. She is currently pain free. OBJECTIVE VITAL SIGNS: Temperature 97.2 degrees, pulse 78, respiratory rate 20, blood pressure 157/90, oxygen saturation 99% on 2 liters nasal cannula. GENERAL: A morbidly obese woman in no acute distress, awake and alert. LUNGS: Clear to auscultation bilaterally. No wheezes or crackles. CARDIOVASCULAR: Normal rate, irregularly irregular. Normal S1 and S2. No murmur. ABDOMEN: Soft and nontender. EXTREMITIES: 1+ pitting edema bilateral lower extremities. CARDIAC MEDICATIONS: 1. Amlodipine 10 mg p.o. daily. 2. Furosemide 40 mg p.o. daily. 3. Metoprolol tartrate 75 mg p.o. daily. 4. Losartan 100 mg p.o. daily. 5. Warfarin 5 mg p.o. daily. LABORATORY DATA: None today. TELEMETRY: Atrial fibrillation, rate controlled. IMPRESSION 1. Paroxysmal atrial fibrillation. 2. Sepsis secondary to Streptococcus agalactiae group B bacteremia. 3. Hypertension, not well controlled. 4. Hyperlipidemia. 5. Bilateral lower extremity venous insufficiency. RECOMMENDATIONS: Continue current cardiac medications. The patient's blood pressure remains poorly controlled; however, losartan as well as amlodipine were just increased today. We will monitor blood pressure response. Continue current cardiac medications otherwise. Monitor INR. Antibiotics per infectious disease. Thank you for this consult. We will continue to follow. Job#: [id number]
[2017-12-17] MEDS: WARFARIN SOD 5 MG TAB PO SCH (17:29)
[2017-12-17] MEDS: HYDRALAZINE HCL 10 MG TAB PO SCH (18:13)
[2017-12-18] VITALS: BP 133/60
[2017-12-18] MEDS: ALBUTEROL/IPRATROPIUM 3 ML NEB NEB SCH ×4 (00:40→19:30)
[2017-12-18 04:00] VITALS: BP 152/82
[2017-12-18] MEDS: PENCICLOVIR TP SCH ×5 (05:05→21:17)
[2017-12-18] MEDS: NYSTATIN SUSPENSION 5 ML UDC PO SCH ×5 (05:05→21:17)
[2017-12-18 07:05] VITALS: BP 150/84
[2017-12-18 07:40] VITALS: BP 150/84
[2017-12-18 07:40] LABS: BASOPHILS % 0.4 % (0.0-1.0); EOSINOPHILS # (AUTO) 0.3 (0.0-0.4); EOSINOPHILS % 3.6 % (0.0-6.0); HEMOGLOBIN 10.4 g/dL (12.0-16.0); LYMPHOCYTES # (AUTO) 2.8 (1.0-3.2); LYMPHOCYTES % 37.2 % (18.0-39.1); MEAN CORPUSCULAR HEMOGLOBIN 29.3 pg (28-32); MEAN CORPUSCULAR HGB CONC 32.5 g/dL (31-35); MEAN CORPUSCULAR VOLUME 90.1 fL (81-99); MONOCYTES # (AUTO) 0.4 (0.2-0.8); MONOCYTES % 5.4 % (4.4-11.3); NEUTROPHILS # (AUTO) 3.9 (2.1-6.9); PLATELET COUNT 248 x10e3/uL (140-360); RED BLOOD COUNT 3.55 x10e6/uL (3.6-5.1); RED CELL DISTRIBUTION WIDTH 14.9 % (11.7-14.4)
[2017-12-18 07:56] LABS: ANION GAP 10.6 mmol/L (8-16); BLOOD UREA NITROGEN 17 mg/dL (7-26); BUN/CREATININE RATIO 21 (6-25); CALCIUM 9.2 mg/dL (8.4-10.2); CARBON DIOXIDE 34 mmol/L (22-29); CHLORIDE 100 mmol/L (98-107); CREATININE, SERUM 0.81 mg/dL (0.57-1.11); EST GLOMERULAR FILTRATION RATE > 60 ML/MIN (60-); GLUCOSE 116 mg/dL (74-118); MAGNESIUM 1.7 MG/DL (1.3-2.1); POTASSIUM 3.6 mmol/L (3.5-5.1); SODIUM 141 mmol/L (136-145)
[2017-12-18] MEDS: DOCUSATE SODIUM LIQD 100 MG/10 ML UDC NG SCH ×2 (09:00→17:00)
[2017-12-18] MEDS: HYDRALAZINE HCL 10 MG TAB PO SCH ×2 (09:11→17:36)
[2017-12-18] MEDS: LOSARTAN POTASSIUM 25 MG TAB PO SCH (09:12)
[2017-12-18] MEDS: MAGNESIUM OXIDE 400 MG TAB PO SCH (09:12)
[2017-12-18] MEDS: METOPROLOL TARTRATE 50 MG TAB PO SCH ×2 (09:12→17:37)
[2017-12-18] MEDS: FUROSEMIDE 40 MG TAB PO SCH (09:12)
[2017-12-18] MEDS: NYSTATIN 15 GM POWDER UD BTL TOP SCH ×2 (09:13→17:37)
[2017-12-18] MEDS: AMLODIPINE BESYLATE 10 MG TAB PO SCH (09:13)
[2017-12-18] MEDS: PANTOPRAZOLE SOD 40 MG TABEC PO SCH (09:13)
[2017-12-18] MEDS: CEFTRIAXONE SOD 1 GM VIAL IV SCH ×2 (10:06→21:17)
[2017-12-18 15:32] VITALS: BP 126/71
[2017-12-18] MEDS: WARFARIN SOD 5 MG TAB PO SCH (17:37)
--- NOTE | 2017-12-18 17:38 | Progress Note ---
DATE: December 18, 2017 CARDIOLOGY PROGRESS NOTE SUBJECTIVE: The patient denies chest pain or shortness of breath. OBJECTIVE VITAL SIGNS: Temperature 96.8 degrees, pulse 87, respiratory rate 18, blood pressure 150/84, oxygen saturation 100% on 2 liters nasal cannula. GENERAL: A morbidly obese woman in no acute distress, awake and alert. LUNGS: Clear to auscultation bilaterally. No wheezes or crackles. CARDIOVASCULAR: Normal rate, regular rhythm. Normal S1 and S2. No murmur. ABDOMEN: Soft and nontender. EXTREMITIES: 1+ pitting edema bilaterally. CARDIAC MEDICATIONS: 1. Amlodipine 10 mg p.o. daily. 2. Furosemide 40 mg p.o. daily. 3. Metoprolol tartrate 75 mg p.o. b.i.d. 4. Losartan 100 mg p.o. daily. 5. Warfarin 5 mg p.o. daily. LABORATORY DATA: WBC 7.4, hemoglobin 10.4, hematocrit 32, platelets 248,000, sodium 141, potassium 3.6, chloride 100, CO2 of 34, BUN 17, creatinine 0.81. TELEMETRY: Normal sinus rhythm with PACs as well as episode of atrial fibrillation. IMPRESSION 1. Paroxysmal atrial fibrillation. 2. Sepsis secondary to Streptococcus agalactiae group B bacteremia. 3. Hypertension, borderline control. 4. Hyperlipidemia. 5. Bilateral lower extremity venous insufficiency. RECOMMENDATIONS: Continue current cardiac medications. Blood pressure is slightly improved. Monitor response to change in losartan and amlodipine. Unclear source of patient's Streptococcus bacteremia. Plan for UCHE for further evaluation. Monitor INR. Antibiotics per infectious disease. Thank you for this consult. We will continue to follow. Job#: [id number]
[2017-12-18 21:06] VITALS: BP 144/67
[2017-12-19] VITALS (7 sets, daily range): BP systolic 131–177; BP diastolic 60–84
[2017-12-19] MEDS: ACETAMINOPHEN 325 MG TAB PO PRN
[2017-12-19] MEDS: PENCICLOVIR TP SCH ×5 (05:35→21:35)
[2017-12-19] MEDS: NYSTATIN SUSPENSION 5 ML UDC PO SCH ×5 (05:35→21:30)
[2017-12-19] MEDS: ALBUTEROL/IPRATROPIUM 3 ML NEB NEB SCH ×4 (07:27→19:04)
[2017-12-19] MEDS: HYDRALAZINE HCL 10 MG TAB PO SCH ×2 (08:44→16:58)
[2017-12-19] MEDS: AMLODIPINE BESYLATE 10 MG TAB PO SCH (08:44)
[2017-12-19] MEDS: FUROSEMIDE 40 MG TAB PO SCH (08:44)
[2017-12-19] MEDS: METOPROLOL TARTRATE 50 MG TAB PO SCH ×2 (08:44→16:59)
[2017-12-19] MEDS: MAGNESIUM OXIDE 400 MG TAB PO SCH (08:44)
[2017-12-19] MEDS: PANTOPRAZOLE SOD 40 MG TABEC PO SCH (08:45)
[2017-12-19] MEDS: CEFTRIAXONE SOD 1 GM VIAL IV SCH ×2 (08:45→22:13)
[2017-12-19] MEDS: DOCUSATE SODIUM LIQD 100 MG/10 ML UDC NG SCH ×2 (09:00→16:32)
[2017-12-19] MEDS: NYSTATIN 15 GM POWDER UD BTL TOP SCH (11:53)
[2017-12-19] MEDS: LOSARTAN POTASSIUM 25 MG TAB PO SCH (13:06)
--- NOTE | 2017-12-19 18:34 | Progress Note ---
DATE: December 19, 2017 CARDIOLOGY PROGRESS NOTE SUBJECTIVE: The patient is doing well. Denies any chest pain or shortness of breath. No complaints. OBJECTIVE VITAL SIGNS: Temperature 96.8, pulse 83, respiratory rate 16, blood pressure 150/85, oxygen saturation 100% on 2 liters nasal cannula. GENERAL: A morbidly obese woman in no acute distress. Awake and alert. CARDIOVASCULAR: Difficult exam. Normal rate and rhythm. Normal S1 and S2. No murmurs. LUNGS: Clear to auscultation bilaterally. No wheezes or crackles. ABDOMEN: Soft, nontender. NEURO AND PSYCH: Alert and oriented to person, place and time. Normal affect. CARDIAC MEDICATIONS: Reviewed. LABORATORY DATA: Reviewed. TELEMETRY DATA: Shows normal sinus rhythm with PACs and a short episode of atrial fibrillation. ASSESSMENT 1. Paroxysmal atrial fibrillation. 2. Sepsis secondary to Streptococcus agalactiae group B bacteremia. 3. Hypertension. 4. Hyperlipidemia. 5. Bilateral lower extremities venous insufficiency. RECOMMENDATIONS: Continue current cardiac medications. Blood pressure is overall well controlled on her current regimen. Discussed with infectious disease regarding her bacteremia, Streptococcus group B bacteremia is not uncommon without an obvious source. The suspicion for endocarditis at this point is very low. Will not perform a UCHE unless clinical suspicion changes. Continue Coumadin, adjust dose per pharmacy to maintain INR between 2 and 3. Antibiotics per infectious disease. Will continue to follow. Job#: [id number]
[2017-12-20 00:21] VITALS: BP 138/65
[2017-12-20] MEDS: ALBUTEROL/IPRATROPIUM 3 ML NEB NEB SCH ×3 (01:30→13:00)
[2017-12-20 01:52] VITALS: BP 138/65
[2017-12-20] MEDS: NYSTATIN SUSPENSION 5 ML UDC PO SCH ×3 (05:21→12:40)
[2017-12-20] MEDS: PENCICLOVIR TP SCH ×3 (05:21→12:40)
[2017-12-20 05:44] VITALS: BP 159/89
[2017-12-20 05:48] LABS: BASOPHILS # (AUTO) 0.1 (0.0-0.1); BASOPHILS % 0.7 % (0.0-1.0); EOSINOPHILS # (AUTO) 0.3 (0.0-0.4); EOSINOPHILS % 3.9 % (0.0-6.0); HEMATOCRIT 33.7 % (34.2-44.1); HEMOGLOBIN 11.1 g/dL (12.0-16.0); LYMPHOCYTES # (AUTO) 2.4 (1.0-3.2); LYMPHOCYTES % 31.7 % (18.0-39.1); MEAN CORPUSCULAR HEMOGLOBIN 29.8 pg (28-32); MEAN CORPUSCULAR HGB CONC 32.9 g/dL (31-35); MEAN CORPUSCULAR VOLUME 90.6 fL (81-99); MONOCYTES # (AUTO) 0.5 (0.2-0.8); MONOCYTES % 6.4 % (4.4-11.3); NEUTROPHILS # (AUTO) 4.3 (2.1-6.9); NEUTROPHILS % 56.6 % (38.7-80.0); PLATELET COUNT 277 x10e3/uL (140-360); RED BLOOD COUNT 3.72 x10e6/uL (3.6-5.1); RED CELL DISTRIBUTION WIDTH 14.9 % (11.7-14.4)
[2017-12-20 06:04] LABS: INR 1.6; PROTHROMBIN TIME 17.9 seconds (11.9-14.5)
[2017-12-20 06:15] LABS: ANION GAP 13.3 mmol/L (8-16); BLOOD UREA NITROGEN 21 mg/dL (7-26); BUN/CREATININE RATIO 23 (6-25); CALCIUM 9.4 mg/dL (8.4-10.2); CARBON DIOXIDE 28 mmol/L (22-29); CHLORIDE 103 mmol/L (98-107); EST GLOMERULAR FILTRATION RATE > 60 ML/MIN (60-); GLUCOSE 111 mg/dL (74-118); POTASSIUM 4.3 mmol/L (3.5-5.1); SODIUM 140 mmol/L (136-145)
[2017-12-20 08:00] VITALS: BP 150/64
[2017-12-20 08:15] VITALS: BP 159/89
[2017-12-20] MEDS: AMLODIPINE BESYLATE 10 MG TAB PO SCH (08:24)
[2017-12-20] MEDS: DOCUSATE SODIUM LIQD 100 MG/10 ML UDC NG SCH (08:24)
[2017-12-20] MEDS: PANTOPRAZOLE SOD 40 MG TABEC PO SCH (08:24)
[2017-12-20] MEDS: FUROSEMIDE 40 MG TAB PO SCH (08:24)
[2017-12-20] MEDS: MAGNESIUM OXIDE 400 MG TAB PO SCH (08:24)
[2017-12-20] MEDS: METOPROLOL TARTRATE 50 MG TAB PO SCH (08:24)
[2017-12-20] MEDS: HYDRALAZINE HCL 10 MG TAB PO SCH (08:24)
[2017-12-20] MEDS: LOSARTAN POTASSIUM 25 MG TAB PO SCH (08:24)
[2017-12-20] MEDS ORDERED: LEVAQUIN500 MG PO (11:43)
[2017-12-20 12:00] VITALS: BP 152/61
--- NOTE | 2017-12-20 13:18 | Progress Note ---
DATE: December 20, 2017 CARDIOLOGY PROGRESS NOTE The patient denies chest pain or shortness of breath. OBJECTIVE VITAL SIGNS: Temperature 97.2 degrees, pulse 92, respiratory rate 20, blood pressure 150/64, oxygen saturation 98% on 2 liters nasal cannula. GENERAL: Obese woman in no acute distress. Awake and alert. LUNGS: Clear to auscultation bilaterally. No wheezes, no crackles. CARDIOVASCULAR: Normal rate, regular rhythm. Normal S1 and S2. No murmur. ABDOMEN: Soft, nontender. EXTREMITIES: 1+ pitting edema. CARDIAC MEDICATIONS 1. Metoprolol tartrate 75 mg p.o. daily. 2. Losartan 100 mg p.o. daily. 3. Amlodipine 10 mg p.o. daily. 4. Furosemide 40 mg p.o. daily. LABS: WBC 7.6, hemoglobin 11.1, hematocrit 33.7, platelets 277. Sodium 140, potassium 4.3, chloride 103, CO2 28, BUN 21, creatinine 0.9. INR 1.6. TELEMETRY: Normal sinus rhythm. IMPRESSION 1. Paroxysmal atrial fibrillation. 2. Sepsis secondary to Streptococcus agalactiae group B bacteremia. 3. Hypertension. 4. Hyperlipidemia. 5. Bilateral lower extremity venous insufficiency. RECOMMENDATIONS: Continue current cardiac medications. Resume warfarin. She does not need bridge to therapeutic INR. Blood pressure is borderline. Will increase metoprolol. Discussed with infectious disease. Clinical suspicion for endocarditis is low. UCHE is therefore not indicated unless clinical suspicion changes. Antibiotics per infectious disease. Thank you for this consult. We will continue to follow. Job#: [id number] SHAZIA
[2017-12-20] MEDS ORDERED: WARFARIN SOD 2 MG TAB PO NR (14:30)
[2017-12-20] MEDS ORDERED: WARFARIN SOD 2.5 MG TAB PO SCH (17:00)
[2017-12-20] MEDS ORDERED: METOPROLOL TARTRATE 50 MG TAB PO SCH (17:00)
== END 2017-12-20 15:09 | disposition home or self-care (01) | DRG 871 ==
LOC: ER 17:16 → ERHOLD 18:31 → ICU 12-11 03:00 → MED/SURG3 12-13 12:29
PROVIDERS: ADMIT Family Medicine; ATTEND Family Medicine
PROC: 02HV33Z Insertion of Infusion Device into Superior Vena Cava, Percutaneous Approach (ICD-10-PCS; principal; 2017-12-11)
DX: A40.1 Sepsis due to streptococcus, group B (principal); I50.33 Acute on chronic diastolic (congestive) heart failure; Z68.42 Body mass index [BMI] 45.0-49.9, adult; L03.116 Cellulitis of left lower limb; I48.0 Paroxysmal atrial fibrillation; R65.20 Severe sepsis without septic shock; I87.2 Venous insufficiency (chronic) (peripheral); E66.01 Morbid (severe) obesity due to excess calories; G89.29 Other chronic pain; G47.33 Obstructive sleep apnea (adult) (pediatric); Z79.01 Long term (current) use of anticoagulants; E78.5 Hyperlipidemia, unspecified; K21.0 Gastro-esophageal reflux disease with esophagitis; G62.9 Polyneuropathy, unspecified; Z83.3 Family history of diabetes mellitus; Z82.49 Family history of ischemic heart disease and other diseases of the circulatory system; F40.240 Claustrophobia; F41.9 Anxiety disorder, unspecified; I11.0 Hypertensive heart disease with heart failure; E87.6 Hypokalemia; D64.9 Anemia, unspecified
CPT/HCPCS: 36415; 36569; 36600; 51700; 71045; 71260; 72132; 74018; 74177; 80048; 80053; 80202; 81001; 82550; 82553; 82805; 83605; 83735; 83880; 84100; 84436; 84443; 84479; 84484; 85025; 85610; 85730; 87040; 87071; 87086; 87205; 93005; 93306; 93970; 94640; 94660; 96374; 96375; 97139; 99284; J0360; J0696; J1170; J1200; J1940; J2405; J2543; J3370; J7030; J7050; Q9967

== ENCOUNTER → 2018-01-02 | Outpatient (CLI) | payer MEDICARE ==
[~2018-01-02] MED LIST: ASPIRIN EC81 MG PO; FUROSEMIDE40 MG PO; GABAPENTIN100 MG PO; HYDRALAZINE HCL25 MG PO; LEVAQUIN500 MG PO; METOPROLOL TART50 MG PO; NIFEDIPINE ER30 M1 PO; OMEPRAZOLE40 MG PO; WARFARIN SODIU2.5 MG PO
== END ==
LOC: MAMMO 09:59
PROVIDERS: ATTEND Internal Medicine
DX: Z12.31 Encounter for screening mammogram for malignant neoplasm of breast (principal)
CPT/HCPCS: 77067

== ENCOUNTER → 2018-01-05 | Outpatient (CLI) | payer MEDICARE | LOC: SLEEP 20:08 | PROVIDERS: ATTEND Internal Medicine Pulmonary Disease | DX: G47.33 Obstructive sleep apnea (adult) (pediatric) (principal) | CPT/HCPCS: 95811 ==

== ENCOUNTER → 2018-05-17 | Outpatient (CLI) | payer MEDICARE ==
--- NOTE | 2018-05-17 14:43 | Diagnostic Imaging Report ---
Exam: Right foot series; 3views dated 05/17/2018 at 1:05 PM History: Pain Comparison: None available Findings: Mild bony osteopenia is present. Lucency of the base of the third metatarsal represents most likely a subchondral cyst. Subtle erosive change of the medial distal fifth metatarsal is present. There is spurring of the calcaneus. Impression: Erosive change of the medial distal fifth metatarsal. Signed by: Dr. Joe Gregory DO on 05/17/2018 2:40 PM
== END ==
LOC: RAD 12:52
PROVIDERS: ATTEND Internal Medicine
DX: M79.671 Pain in right foot (principal)

== ENCOUNTER 2018-08-31 10:50 | Inpatient (IN) | payer MEDICARE ==
[~2018-08-31] VITALS: Ht 157.5 cm; Wt 112.9 kg
[2018-08-31] MEDS ORDERED: PIPER-TAZ 3.375 GM 50 ML IV STA (10:54)
[2018-08-31] MEDS ORDERED: SODIUM CHLORIDE 0.9% 1000ML 1,000 ML IV STA (10:54)
[2018-08-31] MEDS ORDERED: MORPHINE SULFATE INJ 4 MG/ML INJ 1ML IV NR (11:00)
[2018-08-31] MEDS ORDERED: ONDANSETRON HCL INJ 2MG/ML 2ML 2 MG/ML VIAL IV NR (11:00)
[2018-08-31 11:11] LABS: BASOPHILS % 0.3 % (0.0-1.0); EOSINOPHILS # (AUTO) 0.2 (0.0-0.4); HEMATOCRIT 41.3 % (34.2-44.1); LYMPHOCYTES # (AUTO) 2.3 (1.0-3.2); LYMPHOCYTES % 15.8 % (18.0-39.1); MEAN CORPUSCULAR HEMOGLOBIN 28.5 pg (28-32); MEAN CORPUSCULAR HGB CONC 32.2 g/dL (31-35); MEAN CORPUSCULAR VOLUME 88.4 fL (81-99); MONOCYTES # (AUTO) 0.8 (0.2-0.8); MONOCYTES % 5.3 % (4.4-11.3); NEUTROPHILS # (AUTO) 11.3 (2.1-6.9); NEUTROPHILS % 77.2 % (38.7-80.0); PLATELET COUNT 267 x10e3/uL (140-360); RED BLOOD COUNT 4.67 x10e6/uL (3.6-5.1); RED CELL DISTRIBUTION WIDTH 15.6 % (11.7-14.4)
[2018-08-31 11:13] LABS: HEMOGLOBIN 13.3 g/dL (12.0-16.0)
--- NOTE | 2018-08-31 11:27 | Diagnostic Imaging Report ---
EXAM: CHEST SINGLE (PORTABLE) DATE: 08/31/2018 10:54 AM INDICATION: Right leg pain, shortness of breath COMPARISON: Chest x-ray, 12/11/2017 FINDINGS: Lines and tubes: None. Interval removal of right PICC. Cardiac silhouette remains moderately enlarged. There is mild central pulmonary vascular prominence. No pulmonary consolidation, pleural effusion or pneumothorax. Upper abdomen unremarkable. No acute bony abnormality. Cervical spine fusion hardware again noted. IMPRESSION: Stable cardiomegaly and central pulmonary vascular prominence. No pulmonary consolidation or pleural effusion. Signed by: Dr. Cricket Muhammad M.D. on 08/31/2018 11:24 AM
[2018-08-31 11:28] LABS: INR 1.28; PROTHROMBIN TIME 16.6 seconds (11.9-14.5)
[2018-08-31] MEDS: PIPER-TAZ 3.375 GM 50 ML IV SCH ×3 (11:31→18:06)
[2018-08-31 11:37] LABS: ALANINE AMINOTRANSFERASE 13 IU/L (0-55); ALBUMIN 3.6 g/dL (3.5-5.0); ALBUMIN/GLOBULIN RATIO 0.7 (0.8-2.0); ALKALINE PHOSPHATASE 119 IU/L (40-150); BLOOD UREA NITROGEN 20 mg/dL (7-26); BUN/CREATININE RATIO 22 (6-25); CALCIUM 9.8 mg/dL (8.4-10.2); CARBON DIOXIDE 27 mmol/L (22-29); CHLORIDE 102 mmol/L (98-107); CREATINE KINASE 160 IU/L (29-168); CREATININE, SERUM 0.93 mg/dL (0.57-1.11); EST GLOMERULAR FILTRATION RATE > 60 ML/MIN (60-); GLUCOSE 149 mg/dL (74-118); SODIUM 135 mmol/L (136-145)
[2018-08-31 11:49] LABS: CLARITY,URINE CLEAR (CLEAR); COLOR,URINE YELLOW (YELLOW); LEUKOCYTE ESTERASE ,URINE NEGATIVE (NEGATIVE)
[2018-08-31 11:50] LABS: BILIRUBIN,URINE NEGATIVE (NEGATIVE); KETONES,URINE NEGATIVE (NEGATIVE); NITRITE,URINE NEGATIVE (NEGATIVE); PROTEIN,URINE DIPSTICK NEGATIVE (NEGATIVE); URINE UROBILINOGEN 0.2 mg/dL (0.2 - 1)
[2018-08-31] MEDS ORDERED: MORPHINE SULFATE INJ 4 MG/ML INJ 1ML IV PRN (12:00)
[2018-08-31] MEDS ORDERED: LOSARTAN POTAS100 MG PO (12:13)
[2018-08-31] MEDS ORDERED: XARELTO20 MG PO (12:13)
[2018-08-31 12:19] LABS: BACTERIA,URINE RARE /HPF; EPITHELIAL CELLS,URINE RARE /LPF
[2018-08-31] MEDS: VANCOMYCIN 1GM/NS 250 ML 250 ML IV SCH ×3 (12:44→22:22)
[2018-08-31] MEDS ORDERED: ONDANSETRON HCL INJ 2MG/ML 2ML 2 MG/ML VIAL IV PRN (12:45)
[2018-08-31] MEDS ORDERED: MORPHINE SULFATE 2 MG/ML SYR 1ML IV PRN (12:45)
--- NOTE | 2018-08-31 13:00 | NUR ---
PT TEMP IS HIGH 100.6. CALLED DR GARCIA FOR TYLENOL PRESCRIPTION.WAITING FOR CALL BACK.
[2018-08-31 14:00] VITALS: BP 153/77
--- NOTE | 2018-08-31 14:00 | NUR ---
PT TO THE FLOOR AT THIS TIME. VITALS WNL. PT DENIES NEEDS AT THIS TIME.
[2018-08-31] MEDS: SODIUM CHLORIDE 0.9% 1000ML 1,000 ML IV SCH ×2 (15:02→22:45)
[2018-08-31] MEDS: MORPHINE SULFATE INJ 4 MG/ML INJ 1ML IV PRN (15:20)
[2018-08-31 16:00] VITALS: BP 144/80
--- NOTE | 2018-08-31 16:10 | NUR ---
NEW ORDER RECEIVED FROM DR. GARCIA. TYLENOL 650 MG Q6H HRS.
[2018-08-31] MEDS: ACETAMINOPHEN 325 MG TAB PO PRN (16:22)
[2018-08-31 16:46] VITALS: BP 144/80
--- NOTE | 2018-08-31 18:00 | NUR ---
RECHECKED TEMPERATURE FOR THE PT. 100.1 NOTED. PT DENIED NEEDS AT THIS TIME. CALL LIGHT WITH IN REACH. PT FAMILY AT BED SIDE.
--- NOTE | 2018-08-31 19:00 | NUR ---
BEDSIDE REPORT GIVEN TO DIRECTOR BANKING RN
[2018-08-31 20:17] VITALS: BP 134/68
[2018-08-31 21:00] VITALS: BP 134/68
[2018-09-01] VITALS (7 sets, daily range): BP systolic 112–144; BP diastolic 64–79
[2018-09-01] MEDS: PIPER-TAZ 3.375 GM 50 ML IV SCH ×5 (00:23→23:56)
[2018-09-01 05:53] LABS: BASOPHILS % 0.3 % (0.0-1.0); EOSINOPHILS # (AUTO) 0.1 (0.0-0.4); EOSINOPHILS % 1.1 % (0.0-6.0); HEMOGLOBIN 12.1 g/dL (12.0-16.0); LYMPHOCYTES # (AUTO) 3.1 (1.0-3.2); LYMPHOCYTES % 25.4 % (18.0-39.1); MEAN CORPUSCULAR HEMOGLOBIN 28.4 pg (28-32); MEAN CORPUSCULAR HGB CONC 31.8 g/dL (31-35); MEAN CORPUSCULAR VOLUME 89.2 fL (81-99); MONOCYTES # (AUTO) 0.8 (0.2-0.8); MONOCYTES % 6.8 % (4.4-11.3); NEUTROPHILS % 65.8 % (38.7-80.0); PLATELET COUNT 225 x10e3/uL (140-360); RED BLOOD COUNT 4.26 x10e6/uL (3.6-5.1); RED CELL DISTRIBUTION WIDTH 15.7 % (11.7-14.4)
[2018-09-01] MEDS: VANCOMYCIN 1GM/NS 250 ML 250 ML IV SCH ×3 (06:16→22:20)
[2018-09-01 06:20] LABS: ALANINE AMINOTRANSFERASE 8 IU/L (0-55); ALBUMIN 3.2 g/dL (3.5-5.0); ALBUMIN/GLOBULIN RATIO 0.7 (0.8-2.0); ALKALINE PHOSPHATASE 93 IU/L (40-150); ANION GAP 11.7 mmol/L (8-16); BLOOD UREA NITROGEN 17 mg/dL (7-26); BUN/CREATININE RATIO 20 (6-25); CALCIUM 8.8 mg/dL (8.4-10.2); CARBON DIOXIDE 23 mmol/L (22-29); CHLORIDE 106 mmol/L (98-107); CREATININE, SERUM 0.86 mg/dL (0.57-1.11); EST GLOMERULAR FILTRATION RATE > 60 ML/MIN (60-); GLUCOSE 124 mg/dL (74-118); POTASSIUM 3.7 mmol/L (3.5-5.1); SODIUM 137 mmol/L (136-145)
[2018-09-01] MEDS: SODIUM CHLORIDE 0.9% 1000ML 1,000 ML IV SCH ×2 (08:45→18:45)
--- NOTE | 2018-09-01 10:36 | NUR ---
IMM letter delivered and explained to pt. She verbalized understanding. Signed copy placed in chart. Copy to pt.
[2018-09-01] MEDS: ACETAMINOPHEN 325 MG TAB PO PRN (11:13)
[2018-09-01] MEDS ORDERED: RIVAROXABAN 20 MG TABLET PO SCH (12:00)
[2018-09-01] MEDS ORDERED: LOSARTAN POTASSIUM 100 MG TAB PO SCH (12:00)
[2018-09-01] MEDS ORDERED: FUROSEMIDE 40 MG TAB PO SCH (12:00)
[2018-09-01] MEDS ORDERED: PANTOPRAZOLE SOD 40 MG TABEC PO SCH (12:00)
[2018-09-01] MEDS ORDERED: METOPROLOL TARTRATE 50 MG TAB PO SCH (12:00)
--- NOTE | 2018-09-01 14:52 | History and Physical ---
HISTORY OF PRESENT ILLNESS: Ms. Mireles is a 67-year-old female with history of atrial fibrillation, hypertension, reflux, who two days prior to admission started complaining of right leg pain, edema and erythema. She was feeling very bad, so she decided to come to the emergency room. When she came to the emergency room, she was found to have a right lower extremity cellulitis. The Doppler negative for DVT. White count was elevated, so the patient was admitted for IV antibiotics. PAST MEDICAL HISTORY: Hypertension, reflux, and chronic atrial fibrillation. ALLERGIES: NO KNOWN DRUG ALLERGIES. SOCIAL HISTORY: She does not smoke and she does not drink. She lives at home with her family. SURGICAL HISTORY: History of neck surgery, right breast lump removal, and hemorrhoid surgery. PHYSICAL EXAMINATION: GENERAL: Today, she is awake and alert. VITAL SIGNS: Temperature is 98, blood pressure 142/64. HEART: Regular rate. LUNGS: Clear to auscultation. ABDOMEN: Distended and soft. EXTREMITIES: On the right lower extremity, there is erythema and tenderness. LABORATORY DATA: White count on admission was 14.63, hemoglobin 13.3, hematocrit 41.3. Potassium 3.7, creatinine 0.86, glucose 124. Urine shows known white blood cells. Blood cultures and urine cultures are pending. Chest x-ray shows stable cardiomegaly and central pulmonary vascular prominence. No pulmonary consolidation or pleural effusion. I was informed by the ER doctor that the Doppler was negative for DVT. PLAN: The plan at the present time is to admit the patient to the hospital. Infectious Disease consult with Dr. Torres. She is on IV Zosyn every 6 hours and vancomycin every 8 hours. We are going to continue her blood pressure medications and her anticoagulation. All this was discussed with the patient and family member at bedside. All questions were answered to satisfaction. MD KHARI Hollingsworth/KAYLA /[id number]
[2018-09-01] MEDS: HYDRALAZINE HCL 25 MG TAB PO SCH ×2 (15:55→21:35)
[2018-09-01] MEDS: GABAPENTIN 100 MG CAP PO SCH ×2 (15:55→21:35)
[2018-09-01] MEDS ORDERED: ONDANSETRON HCL 4 MG ORAL DISINTEGRATING TAB PO PRN (17:00)
[2018-09-01] MEDS: RIVAROXABAN 20 MG TABLET PO SCH (17:23)
[2018-09-01] MEDS: LOSARTAN POTASSIUM 100 MG TAB PO SCH (17:23)
--- NOTE | 2018-09-01 18:22 | NUR ---
IV leaking to left AC , attempted x 2 to restart IV without success. Will have another RN try.
[2018-09-01] MEDS: METOPROLOL TARTRATE 50 MG TAB PO SCH (21:35)
--- NOTE | 2018-09-01 22:30 | Consultation ---
DATE OF CONSULTATION: REASON FOR CONSULTATION: Cellulitis of the right leg. HISTORY OF PRESENT ILLNESS: This patient is a very pleasant 67-year-old white female with history of obesity, hypertension, reflux disease. She has history of cellulitis before. She is coming with right leg red and swollen for the last 5 days or so. No history of trauma. The patient has redness and swelling. She denies exposure to water. The patient came to the emergency room, where she was evaluated. The patient was started on piperacillin-tazobactam (Zosyn) and vancomycin. I am asked to see her. She is currently lying in bed comfortably. PAST MEDICAL HISTORY: Hypertension and obesity. PAST SURGICAL HISTORY: She denies. ALLERGIES: NKA. SOCIAL HISTORY: There is no smoking, drug abuse, or alcohol abuse. FAMILY HISTORY: Hypertension. REVIEW OF SYSTEMS: HEENT: There is no headache, visual changes, or hearing changes. GI: There is no nausea, no vomiting, no diarrhea. CARDIAC: There is no arrhythmia. NEURO: Seizure activity. SKIN: There is no other rash. Review of systems is otherwise unremarkable, 14-point system reviewed, all within normal limits. PHYSICAL EXAMINATION: GENERAL: She is currently alert, oriented, does not seem to be in acute distress. VITAL SIGNS: Stable, currently afebrile. HEENT: She is not icteric. NECK: Supple. CHEST: Clear. HEART: S1 and S2. There is no murmur. ABDOMEN: Soft. Bowel sounds present. No tenderness. EXTREMITIES: No edema. She did have redness and swelling and edema involving her right leg from the ankle all the way to the knee. The patient does have dry skin and her toenails seems to be in bad shape. IMPRESSION: 1. Cellulitis of the leg and the patient with obesity and hypertension. Agree with the current choice of antibiotics. We will reassess in the next day or 2. If she is not improved, we can switch to oral antibiotics. Discussed with the patient. 2. Obesity. 3. Dermatitis and dry skin. She uses moisturizer cream. 4. Neuropathy. 5. Hypertension. Continue medication as ordered. MD FREIDA Marin/KAYLA /[id number]
[2018-09-02] VITALS (8 sets, daily range): BP systolic 118–168; BP diastolic 69–83
[2018-09-02] MEDS: SODIUM CHLORIDE 0.9% 1000ML 1,000 ML IV SCH ×2 (04:45→14:45)
[2018-09-02] MEDS: PIPER-TAZ 3.375 GM 50 ML IV SCH ×3 (05:48→18:04)
[2018-09-02] MEDS: VANCOMYCIN 1GM/NS 250 ML 250 ML IV SCH (07:16)
[2018-09-02] MEDS: GABAPENTIN 100 MG CAP PO SCH ×3 (08:20→20:56)
--- NOTE | 2018-09-02 08:20 | NUR ---
Stool sample was collected and taken to lab
[2018-09-02] MEDS: HYDRALAZINE HCL 25 MG TAB PO SCH ×3 (08:25→20:56)
[2018-09-02] MEDS: METOPROLOL TARTRATE 50 MG TAB PO SCH ×2 (08:25→20:56)
[2018-09-02] MEDS: PANTOPRAZOLE SOD 40 MG TABEC PO SCH (08:25)
[2018-09-02] MEDS: MORPHINE SULFATE INJ 4 MG/ML INJ 1ML IV PRN (08:55)
--- NOTE | 2018-09-02 15:15 | NUR ---
Vanc trough 21.[address] Torres. New orders received.
--- NOTE | 2018-09-02 17:29 | NUR ---
Patient is CDIFF positive. Paged Dr. Torres. Awaiting call back
[2018-09-02] MEDS: LOSARTAN POTASSIUM 100 MG TAB PO SCH (18:04)
[2018-09-02] MEDS: RIVAROXABAN 20 MG TABLET PO SCH (18:04)
[2018-09-02] MEDS: VANCOMYCIN 250MG/5ML ORAL SOLN PO SCH (18:14)
--- NOTE | 2018-09-02 19:40 | Progress Note ---
DATE: Internal Medicine Progress Note SUBJECTIVE: The patient is doing well . The patient is still having pain and redness of the right leg. OBJECTIVE: HEART: Irregularly irregular heart rate. No murmur or added sound. LUNGS: Clear bilaterally. ABDOMEN: Soft. EXTREMITIES: Show redness and tenderness of the right leg. VITAL SIGNS: Blood pressure 152/69, temperature 97.2, heart rate 72 per minute, respiratory rate 18 per minute, and oxygen saturation 95%. LABORATORY DATA: BMP with a sodium 137, potassium 3.7, chloride 106, CO2 of 23, BUN 17, creatinine 0.6, and glucose 124. CBC; white blood count 12,000, hemoglobin 12.1, hematocrit 38.0, and platelet count 225,000. PT 16.6, INR 1.28, and PTT 33.0. AST 14, ALT 8, total bilirubin 1.4, alkaline phosphatase 93. FINAL IMPRESSION: 1. Cellulitis of the right leg. 2. Hypertension. 3. Chronic atrial fibrillation. 4. Gastroesophageal reflux disease. 5. Obesity. PLAN OF TREATMENT: Continue Zosyn q.6 hours, vancomycin 1 g IV q.12 hours. We are going to discontinue the IV fluids. Continue Tylenol 650 mg p.o. q.6 hours as needed, Protonix 40 mg daily, morphine 4 mg IV q.4 hours as needed, gabapentin 100 mg three times a day, Xarelto 20 mg daily, hydralazine 50 mg three times a day, metoprolol 50 mg twice a day, losartan 100 mg daily, and Zofran 4 mg IV q.4 hours as needed. MD SYDNEE Shirley/KAYLA /[id number]
[2018-09-03] VITALS (9 sets, daily range): BP systolic 136–167; BP diastolic 71–89
[2018-09-03] MEDS: PIPER-TAZ 3.375 GM 50 ML IV SCH ×4 (00:43→16:54)
[2018-09-03] MEDS: VANCOMYCIN 250MG/5ML ORAL SOLN PO SCH ×4 (00:43→16:54)
[2018-09-03] MEDS: MORPHINE SULFATE INJ 4 MG/ML INJ 1ML IV PRN (01:07)
--- NOTE | 2018-09-03 07:02 | NUR ---
Received patient mid fowlers position, side rails upx2, call light within reach. AAOX3 to time, person, place. Respirations even and unlabored. Instructed patient to use call light for assistance. Voiced understanding.
[2018-09-03] MEDS ORDERED: SODIUM CHLORIDE 0.9% 250ML 250 ML ONE (07:58)
[2018-09-03] MEDS: GABAPENTIN 100 MG CAP PO SCH ×3 (08:07→20:40)
[2018-09-03] MEDS: METOPROLOL TARTRATE 50 MG TAB PO SCH ×2 (08:07→20:40)
[2018-09-03] MEDS: PANTOPRAZOLE SOD 40 MG TABEC PO SCH (08:07)
[2018-09-03] MEDS: VANCOMYCIN 1GM/NS 250 ML 250 ML IV SCH ×2 (08:07→20:40)
[2018-09-03] MEDS: HYDRALAZINE HCL 25 MG TAB PO SCH ×3 (08:07→20:40)
[2018-09-03] MEDS: AMLODIPINE BESYLATE 5 MG TAB PO SCH (08:07)
[2018-09-03] MEDS ORDERED: ALBUTEROL SULF 0.083% NEB SOLN 3 ML NEB NEB PRN (14:15)
[2018-09-03] MEDS: RIVAROXABAN 20 MG TABLET PO SCH (16:00)
[2018-09-03] MEDS: LOSARTAN POTASSIUM 100 MG TAB PO SCH (16:00)
--- NOTE | 2018-09-03 16:08 | Progress Note ---
DATE: Internal Medicine Progress Note SUBJECTIVE: The patient is complaining of diarrhea. PHYSICAL EXAMINATION: VITAL SIGNS: Blood pressure 153/74, temperature 98 degrees, heart rate 70 per minute, respiratory rate 17 per minute, oxygen saturation 97%. HEART: Irregular heart rate. Normal S1, S2 sound. LUNGS: Clear bilaterally. ABDOMEN: Soft, slightly tender on the periumbilical area. EXTREMITIES: Showed decreased redness on the right leg. LABORATORY DATA: On the blood work, we have BMP; sodium 137, potassium 3.7, chloride 106, CO2 of 23, BUN 17, creatinine 0.86, glucose 124. On CBC; white count 60054, hemoglobin 12.1, hematocrit 38.0, platelet count 285,000. PT 16.6, INR 1.28, PTT 36.0. AST 14, ALT 8, total bilirubin 1.4, alkaline phosphatase 93. IMPRESSION: 1. Cellulitis of the right leg. 2. Hypertension. 3. Clostridium difficile colitis. 4. Obesity. 5. Gastroesophageal reflux disease. 6. Chronic atrial fibrillation. PLAN OF TREATMENT: Continue contact isolation for clostridium difficile, continue Zosyn q.6 hours. Continue with vancomycin 1 g IV q.12 hours, Zosyn 3.375 g IV q.6 hours, Tylenol 650 mg q.6 hours as needed for pain or fever. Gabapentin 100 mg three times a day, Zofran 4 mg IV q.4 hours as needed, Xarelto 20 mg daily, hydralazine 50 mg three times a day, amlodipine 5 mg daily, morphine 4 mg IV q.4 hours as needed, Protonix 40 mg daily, vancomycin p.o. 250 mg p.o. q.6 hours for C difficile. Continue metoprolol 50 mg twice a day and losartan 100 mg daily. MD SYDNEE Shirley/KAYLA /[id number]
--- NOTE | 2018-09-03 19:01 | NUR ---
Report given to oncoming nurse. Resting in bed. No s/s of acute distress noted.
[2018-09-03] MEDS ORDERED: LEVALBUTEROL HCL SOLN NEBU 0.63 MG/3 ML NEB INH PRN (21:45)
[2018-09-04] VITALS (9 sets, daily range): BP systolic 131–188; BP diastolic 66–105
[2018-09-04] MEDS: PIPER-TAZ 3.375 GM 50 ML IV SCH ×4 (00:36→18:00)
[2018-09-04] MEDS: VANCOMYCIN 250MG/5ML ORAL SOLN PO SCH ×4 (00:36→18:00)
[2018-09-04 05:38] LABS: BASOPHILS % 0.4 % (0.0-1.0); EOSINOPHILS # (AUTO) 0.3 (0.0-0.4); EOSINOPHILS % 3.4 % (0.0-6.0); HEMATOCRIT 37.2 % (34.2-44.1); HEMOGLOBIN 11.7 g/dL (12.0-16.0); LYMPHOCYTES # (AUTO) 2.5 (1.0-3.2); LYMPHOCYTES % 33.9 % (18.0-39.1); MEAN CORPUSCULAR HEMOGLOBIN 28.3 pg (28-32); MEAN CORPUSCULAR HGB CONC 31.5 g/dL (31-35); MEAN CORPUSCULAR VOLUME 90.1 fL (81-99); MONOCYTES # (AUTO) 0.5 (0.2-0.8); MONOCYTES % 6.1 % (4.4-11.3); NEUTROPHILS # (AUTO) 4.1 (2.1-6.9); NEUTROPHILS % 56.1 % (38.7-80.0); PLATELET COUNT 226 x10e3/uL (140-360); RED BLOOD COUNT 4.13 x10e6/uL (3.6-5.1); RED CELL DISTRIBUTION WIDTH 15.7 % (11.7-14.4)
--- NOTE | 2018-09-04 07:05 | NUR ---
RCD PT AT BED PT IS ALERT AND ORIENTED PT RESTING ON BED NO SIGNS OF ANY DISTRESS NOTED BED LOW AND LOCKED CALL LIGHT IN REACH
[2018-09-04] MEDS: PANTOPRAZOLE SOD 40 MG TABEC PO SCH (07:30)
[2018-09-04] MEDS: AMLODIPINE BESYLATE 5 MG TAB PO SCH (09:00)
[2018-09-04] MEDS: METOPROLOL TARTRATE 50 MG TAB PO SCH ×2 (09:00→20:58)
[2018-09-04] MEDS: HYDRALAZINE HCL 25 MG TAB PO SCH ×3 (09:00→20:58)
[2018-09-04] MEDS: VANCOMYCIN 1GM/NS 250 ML 250 ML IV SCH ×2 (09:00→21:00)
[2018-09-04] MEDS: GABAPENTIN 100 MG CAP PO SCH ×3 (09:00→20:58)
--- NOTE | 2018-09-04 12:21 | Progress Note ---
DATE: 09/04/2018 SUBJECTIVE: Ms. Mireles is a 67-year-old female with a history of AFib, hypertension, and reflux, came to the emergency room complaining of right lower extremity pain, edema, and erythema. She was found to have cellulitis. She was started on IV antibiotics. Started to develop diarrhea. C diff came back positive for C diff colitis. She was started on p.o. antibiotics. PHYSICAL EXAMINATION: GENERAL: Today, she is awake and alert. She is not feeling too good. VITAL SIGNS: Temperature is 98.9, blood pressure 158/93. HEART: Irregularly irregular. LUNGS: Clear to auscultation. ABDOMEN: Distended and soft. EXTREMITIES: Lower extremity, she still has some edema and erythema on the right lower extremity. LABORATORY DATA: On the blood work, potassium 3.7, creatinine 0.86, glucose 124. White count 7.34, hemoglobin 11.7, hematocrit 37.2. A venous Doppler was negative for DVT. ASSESSMENT AND PLAN: 1. Right lower extremity cellulitis. 2. Clostridium difficile colitis. 3. Hypertension. 4. Obesity. 5. Chronic atrial fibrillation. 6. Reflux .. The plan at present time is to continue IV antibiotics. Continue vancomycin 250 p.o. every 6 hours. Continue metoprolol and losartan for blood pressure. Continue Xarelto. We are going to get LTAC evaluation in [facility] for IV antibiotics. All this was discussed with the patient. All questions were answered to satisfaction. MD KHARI Hollingsworth/KAYLA /[id number]
--- NOTE | 2018-09-04 14:05 | NUR ---
Received LTAC eval order. CM spoke to pt and pt stated she would like to go to [facility]. Signed choice letter placed in chart. Copy to pt. Blossom with [facility] was notified and will pick up attendant clinicals shortly.
[2018-09-04] MEDS: LOSARTAN POTASSIUM 100 MG TAB PO SCH (16:47)
[2018-09-04] MEDS: RIVAROXABAN 20 MG TABLET PO SCH (16:47)
--- NOTE | 2018-09-04 18:51 | NUR ---
PT RESTING ON BED BED SIDE REPORT GIVEN TO ONCOMING NURSE
[2018-09-04] MEDS: MORPHINE SULFATE INJ 4 MG/ML INJ 1ML IV PRN (23:22)
[2018-09-05] VITALS (8 sets, daily range): BP systolic 134–187; BP diastolic 60–103
[2018-09-05] MEDS: PIPER-TAZ 3.375 GM 50 ML IV SCH ×4 (00:29→17:13)
[2018-09-05] MEDS: VANCOMYCIN 250MG/5ML ORAL SOLN PO SCH ×4 (00:30→17:13)
--- NOTE | 2018-09-05 07:05 | NUR ---
REPORT GIVEN TO ONCOMING NURSE.WALKING ROUNDS MADE.PT RESTING IN BED WITH NO S/S OF DISTRESS.
--- NOTE | 2018-09-05 07:10 | NUR ---
RCD PT AT BED PT IS ALERT AND ORIENTED PT RESTING ON BED NO SIGNS OF ANY DISTRESS NOTED FAMILY AT BED SIDE BED LOW AND LOCKED CALL LIGHT IN REACH
[2018-09-05] MEDS: PANTOPRAZOLE SOD 40 MG TABEC PO SCH (07:30)
[2018-09-05] MEDS: METOPROLOL TARTRATE 50 MG TAB PO SCH ×2 (09:00→21:19)
[2018-09-05] MEDS: GABAPENTIN 100 MG CAP PO SCH ×3 (09:00→21:18)
[2018-09-05] MEDS: VANCOMYCIN 1GM/NS 250 ML 250 ML IV SCH ×2 (09:00→21:18)
[2018-09-05] MEDS: HYDRALAZINE HCL 25 MG TAB PO SCH ×3 (09:00→21:19)
[2018-09-05] MEDS: AMLODIPINE BESYLATE 5 MG TAB PO SCH (09:00)
--- NOTE | 2018-09-05 09:00 | NUR ---
PAGED DR CAMPBELL TO NOTIFY THE [facility] TROUGH
--- NOTE | 2018-09-05 09:51 | NUR ---
NELL KINGSTON CAME TO SEE THE PT NOTIFIED VERNA JOSEPH TO HIM GOT THE ORDER TO CONTINUE THE SAME
[2018-09-05] MEDS ORDERED: CLONIDINE HCL 0.1 MG TAB PO PRN (10:15)
[2018-09-05] MEDS: LOSARTAN POTASSIUM 100 MG TAB PO SCH (16:55)
[2018-09-05] MEDS: RIVAROXABAN 20 MG TABLET PO SCH (16:56)
--- NOTE | 2018-09-05 19:08 | NUR ---
PT RESTING ON BED BED SIDE REPORT GIVEN TO ONCOMING NURSE
--- NOTE | 2018-09-05 19:08 | NUR ---
[facility] DENIED THE PT PAPER IN THE CHART DR FIGUEROA NEED TO TALK TO INSURANCE REPORT GIVEN TO ONCOMING NURSE
--- NOTE | 2018-09-05 19:55 | Discharge Summary ---
HOSPITAL COURSE: Ms. Mireles is a 67-year-old female with history of atrial fibrillation, hypertension, reflux, came to the emergency room complaining of right lower extremity edema and pain. She was found to have cellulitis, started on IV antibiotics. Developed diarrhea during the weekend. She was checked for CT that came back positive. She is on p.o. vancomycin. PHYSICAL EXAMINATION: GENERAL: Today, she is awake and alert. VITAL SIGNS: Temperature is 98.5, blood pressure 187/103. HEART: Regular rate. LUNGS: Clear to auscultation. ABDOMEN: Soft. LABORATORY DATA: On the blood work, potassium is 3.7, creatinine is 0.86, glucose is 124. White count 7.34, hemoglobin 11.7, hematocrit 37.2. DISCHARGE DIAGNOSES: 1. Right lower extremity cellulitis. 2. Clostridium difficile colitis. 3. Uncontrolled hypertension. 4. Obesity. 5. Chronic atrial fibrillation. 6. Reflux. PLAN: The plan at present time is to transfer patient to [facility] if she gets accepted. We are waiting for insurance approval. Continue p.o. vancomycin every 6 hours. Continue Protonix 40 mg daily, metoprolol 50 mg q.12 h., losartan 100 mg daily. Continue Zosyn q.6 hours some vancomycin IV q.12 hours. We are going to put her also on p.r.n. clonidine for her blood pressure. All this was discussed with the patient. All questions were answered to satisfaction. Please see home medication reconciliation list. MD KHARI Hollingsworth/KAYLA /[id number]
[2018-09-06] VITALS (9 sets, daily range): BP systolic 119–167; BP diastolic 62–85
[2018-09-06] MEDS: VANCOMYCIN 250MG/5ML ORAL SOLN PO SCH ×5 (00:11→23:50)
[2018-09-06] MEDS: PIPER-TAZ 3.375 GM 50 ML IV SCH ×5 (00:11→23:50)
--- NOTE | 2018-09-06 07:14 | NUR ---
REPORT GIVEN TO ONCOMING NURSE.WALKING ROUNDS MADE.PT RESTING IN BED WITH NO S/S OF DISTRESS.
[2018-09-06] MEDS: PANTOPRAZOLE SOD 40 MG TABEC PO SCH (07:30)
--- NOTE | 2018-09-06 07:42 | NUR ---
The pt. was received in stable condition and sitting in the bedside chair. The pt. reports that she has already had her shower and has no comp or concerns at this time.
[2018-09-06] MEDS: VANCOMYCIN 1GM/NS 250 ML 250 ML IV SCH ×2 (09:18→20:31)
[2018-09-06] MEDS: HYDRALAZINE HCL 25 MG TAB PO SCH ×3 (09:18→20:32)
[2018-09-06] MEDS: METOPROLOL TARTRATE 50 MG TAB PO SCH ×2 (09:19→20:32)
[2018-09-06] MEDS: GABAPENTIN 100 MG CAP PO SCH ×3 (09:19→20:32)
[2018-09-06] MEDS: AMLODIPINE BESYLATE 5 MG TAB PO SCH (09:19)
--- NOTE | 2018-09-06 10:34 | NUR ---
LTAC was denied by insurance. Dr. Torres will do P2P with ophthalmic medical assistant by end of business day on 09/07.
--- NOTE | 2018-09-06 17:39 | NUR ---
The pt's iv is causing pain but she doesn't want it removed. She was advised that it is in her best interest to replace it as it should not cause her pain when the med infuses.
[2018-09-06] MEDS: LOSARTAN POTASSIUM 100 MG TAB PO SCH (17:44)
[2018-09-06] MEDS: RIVAROXABAN 20 MG TABLET PO SCH (17:44)
[2018-09-07 05:00] VITALS: BP 148/81
[2018-09-07] MEDS: PIPER-TAZ 3.375 GM 50 ML IV SCH ×2 (05:21→12:35)
[2018-09-07] MEDS: VANCOMYCIN 250MG/5ML ORAL SOLN PO SCH ×2 (05:21→12:35)
--- NOTE | 2018-09-07 06:18 | NUR ---
Paged Dr. Lewis for orders. Waiting for response.
--- NOTE | 2018-09-07 07:00 | NUR ---
The pt. was received in bed awake and alert. She denies pain or discomfort at this time. The side rails are up times 2 and call system is within reach. The pt. was advised to call for assistance as needed.
[2018-09-07] MEDS: PANTOPRAZOLE SOD 40 MG TABEC PO SCH (07:30)
[2018-09-07 08:23] VITALS: BP 130/81
[2018-09-07] MEDS: VANCOMYCIN 1GM/NS 250 ML 250 ML IV SCH (08:25)
[2018-09-07] MEDS: HYDRALAZINE HCL 25 MG TAB PO SCH (08:26)
[2018-09-07] MEDS: AMLODIPINE BESYLATE 5 MG TAB PO SCH (08:28)
[2018-09-07] MEDS: METOPROLOL TARTRATE 50 MG TAB PO SCH (08:28)
[2018-09-07] MEDS: GABAPENTIN 100 MG CAP PO SCH (08:28)
[2018-09-07 09:00] VITALS: BP 130/81
[2018-09-07 11:46] VITALS: BP 161/77
--- NOTE | 2018-09-07 13:00 | NUR ---
I spoke with Dr. Bauman and order received to discharge the pt. home with follow up.
--- NOTE | 2018-09-07 14:00 | NUR ---
WOUND CARE - PUP SCREEN Andrew Score 21 Conservative PUP Active LOS:[address] Age 67 Patient OOB Sitting in Chair. Ambulatory. RLE Cellulitis - improving. Discharge Planning in Progress to home vs LTAC with ABX. C-Diff + , States Diarrhea improving. Denies discomfort. RECOMMENDATIONS: Continue Current Treatment Plan. Continue Conservative PUP. Addendum: 09/07/18 at 1401 by Keven Baxter RN Amended: Links added.
--- NOTE | 2018-09-07 14:05 | Progress Note ---
DATE: SUBJECTIVE: Ms. Payne is doing well. No complaints. REVIEW OF SYSTEMS: HEENT: There is no headache, visual change or hearing changes. GI: There is no nausea. No vomiting. There is no more diarrhea. CARDIAC: There is no arrhythmia. EXTREMITIES: The legs are slowly better. PHYSICAL EXAMINATION: GENERAL: She is currently alert, oriented, does not seem to be in acute distress. Obese. VITAL SIGNS: Stable, currently afebrile. HEENT: She is not icteric. NECK: Supple. CHEST: Clear. HEART: S1, S2. No S3, S4, or murmur. ABDOMEN: Soft. Bowel sounds present. EXTREMITIES: In the right leg there is erythema, there is edema, but subsiding slowly. IMPRESSION: 1. Cellulitis of the legs slowly getting better. The patient is morbidly obese. The patient with bilateral lower extremities lymphedema. She has been here for 7 days. We will switch her to doxycycline 100 mg p.o. b.i.d. 2. Clostridium difficile. Continue with oral vancomycin 250 p.o. q.8 hours for 2 weeks. Follow up in 2 weeks. 3. Obesity. 4. Lymphedema of bilateral lower extremities. PLAN: Recommend thigh-high elastic stocking to be on every morning. We will leave the prescription in chart. MD FREIDA Marin/KAYLA /[id number]
--- NOTE | 2018-09-07 15:31 | Discharge Summary ---
HOSPITAL COURSE: Ms. Mireles is a 67-year-old female with a history of AFib, hypertension, reflux came the emergency room complaining of chills, fever, right lower extremity edema and pain. She was found to have cellulitis and leukocytosis. She was admitted to the hospital on IV antibiotics. Developed diarrhea. Stool guaiac came back positive for Clostridium difficile. She was started on p.o. vancomycin. LTAC evaluation was requested, but insurance is denying LTAC. PHYSICAL EXAMINATION: GENERAL: Today, she is awake and alert. VITAL SIGNS: Temperature is 97.7, blood pressure 143/72. HEART: Irregularly irregular. LUNGS: Clear to auscultation. ABDOMEN: Soft. LOWER EXTREMITIES: The right lower extremity still a little erythematous and mild edema. The patient is still with some diarrhea. LABORATORY DATA: On the blood work, potassium 3.7, creatinine is 0.86, glucose 124. White count is 7.34, hemoglobin 11.7, hematocrit 37.2. DISCHARGE DIAGNOSES: 1. Right lower extremity cellulitis. 2. Leukocytosis. 3. Clostridium colitis. 4. Uncontrolled hypertension. 5. Obesity. 6. Chronic atrial fibrillation. 7. Reflux. PLAN: At present time, the patient was refused LTAC, so we are going to continue Protonix, metoprolol, and losartan. She is on vancomycin 250 p.o. q.6 hours for Clostridium difficile. We discussed with Infectious Disease if she can be switched to any type of p.o. antibiotics and may be discharge her home if possible today and have her follow up as an outpatient. Please see home medication reconciliation list. All this was discussed with the patient. All questions were answered to satisfaction. MD KHARI Hollingsworth/JOSEL /[id number]
[2018-09-07] MEDS ORDERED: DOXYCYCLINE HY100 MG PO (15:58)
[2018-09-07] MEDS ORDERED: FLAGYL250 MG PO (16:00)
[2018-09-07 16:02] VITALS: BP 137/94
--- NOTE | 2018-09-07 17:30 | NUR ---
The pt. was discharged home in stable condition with prescriptions and follow up instructions. She was escorted to private car and place into the custody of her spouse.
--- NOTE | 2018-09-08 09:55 | Discharge Summary ---
HOSPITAL COURSE: Ms. Mireles is a 67-year-old female with history of atrial fibrillation, hypertension, reflux, came to the emergency room complaining of right lower extremity edema and erythema, started on IV antibiotics for cellulitis, developed diarrhea and stool for Clostridium diff, came back positive. She was started on p.o. vancomycin. PHYSICAL EXAMINATION: GENERAL: Today, she is awake and alert. VITAL SIGNS: Temperature is 96.4, blood pressure 130/81. HEART: Irregularly irregular. LUNGS: Clear to auscultation. ABDOMEN: Distended and soft. EXTREMITIES: Right lower extremity still with some erythema, but she says it is slowly improving. LABORATORY DATA: On the blood work, potassium 3.7, creatinine 0.86, glucose 126. White count is 7.34, hemoglobin 11.7, and hematocrit 37.2. DISCHARGE DIAGNOSES: 1. Right lower extremity cellulitis. 2. Clostridium difficile colitis. 3. Uncontrolled hypertension. 4. Obesity. 5. Chronic atrial fibrillation. 6. Reflux. PLAN: At the present time, insurance deny LTAC, so we have options for SNF with IV antibiotics or home health with IV antibiotics will be an option. The patient may need a PICC line, antibiotics as per Infectious Disease. Continue vancomycin p.o. Continue Protonix 40 mg daily, metoprolol 50 q.12 hours, losartan 100 mg daily and follow up with me in one week if she gets discharged today. All this was discussed with the patient. All questions were answered to satisfaction. MD KHARI Hollingsworth/KAYLA /[id number]
== END 2018-09-07 17:44 | disposition home or self-care (01) | DRG 603 ==
LOC: ER 10:50 → ERHOLD 12:52 → MED/SURG2 13:56
PROVIDERS: ADMIT Internal Medicine; ATTEND Internal Medicine
DX: L03.115 Cellulitis of right lower limb (principal); A04.72 Enterocolitis due to Clostridium difficile, not specified as recurrent; Z68.42 Body mass index [BMI] 45.0-49.9, adult; I10 Essential (primary) hypertension; I48.2 Chronic atrial fibrillation; Z79.01 Long term (current) use of anticoagulants; E66.9 Obesity, unspecified; K21.9 Gastro-esophageal reflux disease without esophagitis; I89.0 Lymphedema, not elsewhere classified
CPT/HCPCS: 36415; 71045; 80053; 80202; 81001; 82550; 82553; 83605; 84484; 85025; 85610; 85730; 87040; 87086; 87493; 93005; 93971; 94640; 96374; 96376; J2270; J2405; J2543; J3370; J7030; J7050

== ENCOUNTER 2018-11-11 09:47 | Emergency (ER) | payer MEDICARE ==
[~2018-11-11] VITALS: Ht 157.5 cm; Wt 112.9 kg
[~2018-11-11 09:47] MED LIST changes: +DOXYCYCLINE HY100 MG PO; +FLAGYL250 MG PO; +LOSARTAN POTAS100 MG PO; +XARELTO20 MG PO
[2018-11-11 10:30] LABS: BASOPHILS % 0.4 % (0.0-1.0); EOSINOPHILS # (AUTO) 0.1 (0.0-0.4); EOSINOPHILS % 1.8 % (0.0-6.0); HEMATOCRIT 42.5 % (34.2-44.1); HEMOGLOBIN 13.5 g/dL (12.0-16.0); LYMPHOCYTES # (AUTO) 2.6 (1.0-3.2); LYMPHOCYTES % 34.9 % (18.0-39.1); MEAN CORPUSCULAR HEMOGLOBIN 28.2 pg (28-32); MEAN CORPUSCULAR HGB CONC 31.8 g/dL (31-35); MEAN CORPUSCULAR VOLUME 88.7 fL (81-99); MONOCYTES # (AUTO) 0.5 (0.2-0.8); MONOCYTES % 6.8 % (4.4-11.3); NEUTROPHILS # (AUTO) 4.1 (2.1-6.9); NEUTROPHILS % 55.8 % (38.7-80.0); PLATELET COUNT 258 x10e3/uL (140-360); RED BLOOD COUNT 4.79 x10e6/uL (3.6-5.1); RED CELL DISTRIBUTION WIDTH 15.6 % (11.7-14.4)
[2018-11-11 10:31] LABS: BILIRUBIN,URINE NEGATIVE (NEGATIVE); CLARITY,URINE CLEAR (CLEAR); COLOR,URINE YELLOW (YELLOW); KETONES,URINE NEGATIVE (NEGATIVE); LEUKOCYTE ESTERASE ,URINE TRACE (NEGATIVE); NITRITE,URINE NEGATIVE (NEGATIVE); PROTEIN,URINE DIPSTICK NEGATIVE (NEGATIVE); URINE UROBILINOGEN 0.2 mg/dL (0.2 - 1)
[2018-11-11 10:46] LABS: ALANINE AMINOTRANSFERASE 14 IU/L (0-55); ALBUMIN 3.6 g/dL (3.5-5.0); ALBUMIN/GLOBULIN RATIO 0.8 (0.8-2.0); ALKALINE PHOSPHATASE 114 IU/L (40-150); ANION GAP 14.3 mmol/L (8-16); BLOOD UREA NITROGEN 25 mg/dL (7-26); BUN/CREATININE RATIO 28 (6-25); CARBON DIOXIDE 25 mmol/L (22-29); CHLORIDE 105 mmol/L (98-107); EST GLOMERULAR FILTRATION RATE > 60 ML/MIN (60-); GLUCOSE 121 mg/dL (74-118); POTASSIUM 4.3 mmol/L (3.5-5.1); SODIUM 140 mmol/L (136-145)
[2018-11-11 10:58] LABS: BACTERIA,URINE MODERATE /HPF; EPITHELIAL CELLS,URINE MODERATE /LPF
--- NOTE | 2018-11-11 11:18 | Diagnostic Imaging Report ---
EXAM: CT Abdomen and Pelvis WITHOUT contrast INDICATION: ^flank pain ^[id number] ^1020 COMPARISON: Chest radiograph 08/31/[address] abdomen and pelvis 12/11/2017 TECHNIQUE: Abdomen and pelvis were scanned utilizing a multidetector helical scanner from the lung base to the pubic symphysis without administration of IV contrast. Absence of intravenous contrast decreases sensitivity for detection of focal lesions and vascular pathology. Coronal and sagittal reformations were obtained. Routine protocol was performed. IV CONTRAST: None. ORAL CONTRAST: None RADIATION DOSE: Total DLP: 876.4 mGy*cm Estimated effective dose: (DLP x 0.015 x size factor) mSv COMPLICATIONS: None FINDINGS: LINES and TUBES: None. LOWER THORAX: Unremarkable HEPATOBILIARY: No focal hepatic lesions. No biliary ductal dilation. GALLBLADDER: No radio-opaque stones or sludge. No wall thickening. SPLEEN: No splenomegaly. PANCREAS: No focal masses or ductal dilatation. ADRENALS: No adrenal nodules KIDNEYS/URETERS: No hydronephrosis. No cystic or solid mass lesions. Two faint 1 mm calcifications in the right renal pelvis, and coronal image 69 and 72 are suggestive of nonobstructing stones. No additional calcified stones in the bilateral kidneys or collecting systems. GI TRACT: No abnormal distention, wall thickening, or evidence of bowel obstruction. Appendix is normal. PELVIC ORGANS/BLADDER: Unremarkable. LYMPH NODES: No lymphadenopathy. VESSELS: Mild atherosclerotic calcification throughout the abdominal aorta and pelvic arteries. Moderate calcified plaque in the proximal right renal artery. PERITONEUM / RETROPERITONEUM: No free air or fluid. BONES: Moderate multilevel degenerative changes of the number spine. SOFT TISSUES: Unremarkable. IMPRESSION: Two tiny right renal stones. No hydronephrosis. Signed by: Dr. Vero High M.D. on 11/11/2018 11:14 AM
[2018-11-11] MEDS ORDERED: SODIUM CHLORIDE 0.9% 1000ML 1,000 ML IV STA (11:24)
[2018-11-11] MEDS ORDERED: ONDANSETRON HCL INJ 2MG/ML 2ML 2 MG/ML VIAL IV ONE (12:00)
[2018-11-11] MEDS ORDERED: KETOROLAC TROMETHAMINE 30 MG/ML VIAL IV ONE (12:00)
[2018-11-11] MEDS ORDERED: CEFTRIAXONE SOD 1 GM/NS 50 ML 50 ML IV ONE (12:00)
== END 2018-11-11 13:16 | disposition home or self-care (01) ==
LOC: ER 09:53
DX: R10.9 Unspecified abdominal pain (principal); M54.5 Low back pain; N39.0 Urinary tract infection, site not specified; N20.1 Calculus of ureter; I10 Essential (primary) hypertension
CPT/HCPCS: 36415; 74176; 80053; 81001; 85025; 99284; J0696; J1885; J2405; J7030

== ENCOUNTER → 2018-11-15 | Outpatient (CLI) | payer MEDICARE ==
--- NOTE | 2018-11-15 14:14 | Diagnostic Imaging Report ---
Exam: Abdominal film Clinical History: Renal calculi Comparison: CT abdomen and pelvis without contrast 11/11/2018 DISCUSSION: Punctate right renal calculi described on the comparison CT are not visualized by plain radiography. No calcifications project over the renal shadows or expected ureteral courses. Bowel gas pattern is nonobstructive. No mass effect or organomegaly. Regional skeletal structures are intact with degenerative disc changes and facet arthropathy of the lower lumbar spine. IMPRESSION: Punctate right renal calculi described on the comparison CT are not visualized by plain radiography. Signed by: Dr. Dave Alston M.D. on 11/15/2018 2:11 PM
== END ==
LOC: RAD 12:46
PROVIDERS: ATTEND Urology
DX: N20.0 Calculus of kidney (principal)
CPT/HCPCS: 74018

== ENCOUNTER 2019-01-08 11:26 | Emergency (ER) | payer MEDICARE ==
[~2019-01-08] VITALS: Ht 157.5 cm; Wt 112.9 kg
[2019-01-08] MEDS ORDERED: SODIUM CHLORIDE 0.9% 1000ML 1,000 ML IV ONE (11:45)
[2019-01-08] MEDS ORDERED: ONDANSETRON HCL INJ 2MG/ML 2ML 2 MG/ML VIAL IV ONE (12:00)
[2019-01-08] MEDS ORDERED: MORPHINE SULFATE 2 MG/ML SYR 1ML IV ONE (12:30)
[2019-01-08] MEDS ORDERED: MICARDIS40 MG PO (12:34)
[2019-01-08] MEDS ORDERED: HYDROCHLOROTHIA25 MG PO (12:34)
[2019-01-08] MEDS ORDERED: ONDANSETRON HCL4 MG PO (12:34)
--- NOTE | 2019-01-08 12:35 | NUR ---
PT STATES SHE TOOK METOPROLOL, GABAPENTIN, AND OMEPRAZOLE DENTAL SERVICE TECHNICIAN
[2019-01-08 12:40] LABS: BASOPHILS % 0.6 % (0.0-1.0); EOSINOPHILS # (AUTO) 0.2 (0.0-0.4); EOSINOPHILS % 2.8 % (0.0-6.0); HEMATOCRIT 44.8 % (34.2-44.1); HEMOGLOBIN 14.7 g/dL (12.0-16.0); LYMPHOCYTES # (AUTO) 2.6 (1.0-3.2); LYMPHOCYTES % 38.2 % (18.0-39.1); MEAN CORPUSCULAR HEMOGLOBIN 29.8 pg (28-32); MEAN CORPUSCULAR HGB CONC 32.8 g/dL (31-35); MEAN CORPUSCULAR VOLUME 90.7 fL (81-99); MONOCYTES # (AUTO) 0.5 (0.2-0.8); MONOCYTES % 7.9 % (4.4-11.3); NEUTROPHILS # (AUTO) 3.4 (2.1-6.9); NEUTROPHILS % 50.4 % (38.7-80.0); PLATELET COUNT 250 x10e3/uL (140-360); RED BLOOD COUNT 4.94 x10e6/uL (3.6-5.1); RED CELL DISTRIBUTION WIDTH 15.1 % (11.7-14.4)
[2019-01-08 12:51] LABS: BILIRUBIN,URINE NEGATIVE (NEGATIVE); CLARITY,URINE SL CLOUDY (CLEAR); COLOR,URINE YELLOW (YELLOW); KETONES,URINE NEGATIVE (NEGATIVE); LEUKOCYTE ESTERASE ,URINE NEGATIVE (NEGATIVE); NITRITE,URINE NEGATIVE (NEGATIVE); PROTEIN,URINE DIPSTICK NEGATIVE (NEGATIVE); URINE UROBILINOGEN 0.2 mg/dL (0.2 - 1)
--- NOTE | 2019-01-08 13:03 | Diagnostic Imaging Report ---
Chest, 1 view, 01/08/2019. History: Nausea, abdominal pain. Comparison: 08/31/2018. Findings: The cardiomediastinal silhouette and pulmonary vasculature are mildly prominent. There is no focal consolidation or pleural effusion. Surgical hardware is again seen in the lower cervical spine. There are no acute osseous or soft tissue abnormalities. Impression: Mild cardiomegaly and vascular congestion. Signed by: Reymundo Taylor on 01/08/2019 1:00 PM
[2019-01-08 13:06] LABS: INR 1.57; PROTHROMBIN TIME 19.4 seconds (11.9-14.5)
[2019-01-08 13:07] LABS: BACTERIA,URINE FEW /HPF; EPITHELIAL CELLS,URINE FEW /LPF; RBC,URINE 0-5 /HPF (0-5)
[2019-01-08 13:07] LABS: PARTIAL THROMBOPLASTIN TIME 38.8 seconds (23.8-35.5)
[2019-01-08 13:12] LABS: AMYLASE 62 U/L (25-125); LIPASE 7 U/L (8-78)
[2019-01-08 13:14] LABS: ALANINE AMINOTRANSFERASE 17 IU/L (0-55); ALBUMIN 3.7 g/dL (3.5-5.0); ALBUMIN/GLOBULIN RATIO 0.8 (0.8-2.0); ALKALINE PHOSPHATASE 96 IU/L (40-150); ANION GAP 16.4 mmol/L (8-16); BLOOD UREA NITROGEN 17 mg/dL (7-26); BUN/CREATININE RATIO 20 (6-25); CARBON DIOXIDE 27 mmol/L (22-29); CHLORIDE 101 mmol/L (98-107); CREATINE KINASE 149 IU/L (29-168); CREATININE, SERUM 0.87 mg/dL (0.57-1.11); EST GLOMERULAR FILTRATION RATE > 60 ML/MIN (60-); GLUCOSE 120 mg/dL (74-118); POTASSIUM 4.4 mmol/L (3.5-5.1); SODIUM 140 mmol/L (136-145)
[2019-01-08] MEDS ORDERED: SODIUM CHLORIDE 0.9% 50ML 50 ML ONE (14:17)
[2019-01-08] MEDS ORDERED: IOPAMIDOL 370 MG/ML 200 ML INFUS..BTL INJ ONE (14:18)
[2019-01-08] MEDS ORDERED: KETOROLAC TROMETHAMINE 30 MG/ML VIAL IV STA (14:32)
[2019-01-08] MEDS ORDERED: DICYCLOMINE HCL 20 MG/2 ML VIAL IM ONE (14:45)
--- NOTE | 2019-01-08 15:18 | Diagnostic Imaging Report ---
CT of the abdomen and pelvis, with contrast, 01/08/2019. History: Upper abdominal pain. Comparison: 11/11/2018. Technique: Multidetector CT scanning of the abdomen and pelvis was performed from the level of the lung bases to the inferior pubic rami after intravenous administration of contrast. Coronal and sagittal multiplanar reformations were obtained. RADIATION DOSE: Total DLP: 805 mGy*cm Dose modulation, iterative reconstruction, and/or weight based adjustment of the mA/kV was utilized to reduce the radiation dose to as low as reasonably achievable. Discussion: LUNG BASES: No visualized abnormalities. ABDOMEN: The liver is enlarged measuring over 17 cm in length. There is no focal hepatic abnormality. The gallbladder, biliary tree, spleen, pancreas, adrenal glands, and kidneys are normal. The hepatic vein, portal vein, and splenic vein are patent. The abdominal aorta is within normal limits for size. The stomach and small bowel are unremarkable. The appendix is visualized and is normal. Scattered diverticuli are present throughout the ascending and sigmoid colon without evidence of adjacent inflammation. There is no evidence of adenopathy or free fluid. A tiny fat-containing umbilical hernia is present. PELVIS: The bladder, uterus, and adnexa are normal in appearance. There is no evidence of free fluid or adenopathy. BONES AND SOFT TISSUES: Degenerative changes are present throughout the lumbar spine without evidence of lytic or sclerotic lesion. IMPRESSION: 1. Mild hepatomegaly without focal hepatic abnormality. 2. Colonic diverticulosis without evidence of diverticulitis. Otherwise unremarkable CT of the abdomen and pelvis. Signed by: Reymundo Taylor on 01/08/2019 3:15 PM
[2019-01-08 16:50] VITALS: BP 122/72
== END 2019-01-08 16:56 | disposition home or self-care (01) ==
LOC: ER 11:26
DX: R10.13 Epigastric pain (principal); R11.0 Nausea; I10 Essential (primary) hypertension
CPT/HCPCS: 36415; 71045; 74177; 80053; 81001; 82150; 82550; 82553; 83690; 83880; 84484; 85025; 85610; 85730; 93005; 99284; J1885; J2270; J2405; J7030; Q9967; J0500

== ENCOUNTER → 2019-01-18 | Outpatient (CLI) | payer MEDICARE ==
[~2019-01-18] MED LIST changes: +HYDROCHLOROTHIA25 MG PO; +MICARDIS40 MG PO; +ONDANSETRON HCL4 MG PO
--- NOTE | 2019-01-23 09:30 | Diagnostic Imaging Report ---
#[id number] - MGSCRBIL #BILATERAL DIGITAL SCREENING MAMMOGRAM WITH CAD: 01/18/2019 CLINICAL: Routine screening. Comparison is made to exams dated: 01/02/2018 mammogram - [facility], 09/10/2014 stereotactic biopsy, 09/10/2014 mammogram and 08/21/2014 mammogram - [facility]. Current study contains 6 films. There are scattered fibroglandular elements in both breasts. Current study was also evaluated with a Computer Aided Detection (CAD) system. There are benign vascular calcifications in both breasts. Benign appearing calcifications are noted bilaterally. Right breast post lumpectomy changes are present. No significant masses, calcifications, or other findings are seen in either breast. IMPRESSION: BENIGN There is no mammographic evidence of malignancy. A 1 year screening mammogram is recommended. The patient will be notified by letter of the results. CIPRIANO HOYT M.D. ct/penrad:01/19/2019 17:58:45 Circus Artist: Xiomy RANGEL(Leticia)(Bisi), [facility] letter sent: Normal Exam Mammogram BI-RADS: 2 Benign
== END ==
LOC: MAMMO 12:44
PROVIDERS: ATTEND Internal Medicine
DX: Z12.31 Encounter for screening mammogram for malignant neoplasm of breast (principal)
CPT/HCPCS: 77067

== ENCOUNTER → 2019-04-30 | Outpatient (CLI) | payer MEDICARE ==
--- NOTE | 2019-04-30 15:17 | Diagnostic Imaging Report ---
Chest, PA and lateral. History: Pneumonia. Comparison: 01/08/2019. Discussion: The heart is within normal limits of size. The mediastinal and hilar contours are unremarkable. There is no focal consolidation, pleural effusion, or pneumothorax. No acute osseous antibodies. Status post ACDF. IMPRESSION: No acute cardiopulmonary abnormality. Signed by: Jomar Chang MD on 04/30/2019 3:14 PM
== END ==
LOC: RAD 12:49
PROVIDERS: ATTEND Internal Medicine
DX: J18.9 Pneumonia, unspecified organism (principal)
CPT/HCPCS: 71046

== ENCOUNTER → 2019-06-27 | Day surgery (SDC) | payer OTHER ==
[2019-06-25 15:30] LABS: BASOPHILS # (AUTO) 0.1 (0.0-0.1); BASOPHILS % 0.7 % (0.0-1.0); EOSINOPHILS # (AUTO) 0.2 (0.0-0.4); EOSINOPHILS % 2.9 % (0.0-6.0); HEMATOCRIT 45.4 % (34.2-44.1); HEMOGLOBIN 14.9 g/dL (12.0-16.0); LYMPHOCYTES # (AUTO) 3.6 (1.0-3.2); MEAN CORPUSCULAR HEMOGLOBIN 30.1 pg (28-32); MEAN CORPUSCULAR HGB CONC 32.8 g/dL (31-35); MEAN CORPUSCULAR VOLUME 91.7 fL (81-99); MONOCYTES # (AUTO) 0.5 (0.2-0.8); MONOCYTES % 6.9 % (4.4-11.3); NEUTROPHILS # (AUTO) 3.2 (2.1-6.9); NEUTROPHILS % 42.2 % (38.7-80.0); PLATELET COUNT 249 x10e3/uL (140-360); RED BLOOD COUNT 4.95 x10e6/uL (3.6-5.1); RED CELL DISTRIBUTION WIDTH 13.6 % (11.7-14.4)
[2019-06-25 16:15] LABS: INR 0.99; PROTHROMBIN TIME 13.3 seconds (11.9-14.5)
[2019-06-25 16:23] LABS: ALANINE AMINOTRANSFERASE 16 IU/L (0-55); ALKALINE PHOSPHATASE 91 IU/L (40-150); BLOOD UREA NITROGEN 20 mg/dL (7-26); BUN/CREATININE RATIO 25 (6-25); CALCIUM 10.1 mg/dL (8.4-10.2); CARBON DIOXIDE 26 mmol/L (22-29); CHLORIDE 101 mmol/L (98-107); CREATININE, SERUM 0.79 mg/dL (0.57-1.11); EST GLOMERULAR FILTRATION RATE > 60 ML/MIN (60-); GLUCOSE 93 mg/dL (74-118); SODIUM 140 mmol/L (136-145)
[~2019-06-27] VITALS: Ht 160 cm; Wt 120.2 kg
[2019-06-27] VITALS (9 sets, daily range): BP systolic 98–178; BP diastolic 53–90
[~2019-06-27] MED LIST changes: +FENTANYL CITRATE/PF 100MCG/2 ML INJ ONE; +HEPARIN SOD (PORCINE) 1000 UNIT/ML 30ML ONE; +HEPARIN SOD/SOD CHLORIDE 2,000 ML ONE; +HYDROCODONE/APAP 5MG-325MG TAB ONE; +IOPAMIDOL 370 MG/ML 200 ML INFUS..BTL INJ ONE; +LIDOCAINE HCL 2% LOCAL 20 ML VIAL ONE; +MECLIZINE HCL12.5 MG PO; +MIDAZOLAM HCL 2 MG/2 ML VIAL ONE; +NITROGLYCERIN/D5W 200 MCG/ML 250 ML ONE; +SODIUM CHLORIDE 0.9% 1000ML 1,000 ML ONE; +TELMISARTAN-HC1 EAC2 PO; +VERAPAMIL HCL 2.5 MG/ML 2 ML VIAL ONE
--- NOTE | 2019-06-27 08:45 | NUR ---
0845am RECEIVING NOTE HAND RIGGER RECOVERY DEPT............................................................... Bedside report received from JONNATHAN Grijalva. Identifierx2. Alert oriented and appropriate, PERRLA, respirations even and unlabored to room air. Pulses x4 extremities equal and strong. Pedal pulses PT/DP X4 Positive swelling left foot. Cap fill brisk < 3 sec. Tr band approach ok to decrease at 935am. Rt Venous sheath.Noted in place Ronald, cathode builder at bedside to pull.No gross issues pain 10/10 with c/o spasm pain at ac.Received 100 fentylnal and 3versed with Nitro in LAB. Reported pain to wants venous sheath out ward.No pallor pressure ,currently in atrial fib. Skin warm and dry integrity appears D/I IV 20g to left forearm presents healthy w/o s/s of infiltration or complaint. Abdomen soft and supple. pt offered toileting, denies need to urinate or defecate. No personal affects with patient. Family XXXXX. Pt and family verbalizes understanding of POC. Ronald pulling sheath at 0855 10minute hold reported to Dr Gabe Puentes that pain still 10/10. Received orders for Narco 5/325 po. 09 po Narco 325/5mg given. Fed diet tray. Tolerating well.ds/rn
--- NOTE | 2019-06-27 09:25 | NUR ---
0925a states pain 5/10 now to rt ac site. ds/rn RADIAL COMPRESSION REMOVAL NOTE: Initial Cuff volume 12 cc 0925a -2cc Removed No hematoma/bleeding noted with normal neurovascular function. 0940a -5cc Removed No hematoma/ bleeding noted with normal neurovascular function. 1000a -5cc Removed No hematoma/bleeding noted with normal neurovascular function. Air removal completed. Stasis achieved sterile 2x2,Tegaderm, Coban dressing No hematoma, bleeding noted with normal neurovascular function. Wrist splint in place. Pt instructed on POC. Ds/Rn
--- NOTE | 2019-06-27 10:00 | NUR ---
1000am 10 am TRANSFORMER ASSEMBLY SUPERVISOR RECOVERY DISCHARGE NURSING NOTE Pt meets DC criteria. Skin assessed for s/s of complication and presence of hematoma. Skin warm, dry, no discolor, and pulses present. IV removed from left arm. Distal tip appears intact. VS WNL. Pt denies pain, sob, or need at this time. Family at Review of discharge paperwork and follow up instructions. verbalized understanding. Pt to wheelchair and transported to front of hospital. Transferred to private vehicle under own strength w/o incident with DC paperwork in hand. - morales/argelia
--- NOTE | 2019-07-27 14:33 | Operative Report ---
DATE OF PROCEDURE: 06/27/2019 SURGEON: Josep Bernal MD INDICATIONS FOR PROCEDURE: Shortness of breath and dyspnea on exertion. PREPROCEDURE ASSESSMENT: The risks, the benefits, and the alternatives to treatment explained to the patient prior to the procedure. Informed consent was documented and obtained in the medical record. MEDICATIONS: Please see nursing notes for medications administered throughout the procedure. PROCEDURES: 1. Coronary angiography, right radial approach. 2. Left heart catheterization. 3. Right heart catheterization, right antecubital approach. 4. Moderate sedation time, 65 minutes. PROCEDURE DETAILS: The patient was brought to the Cardiac Catheterization Laboratory in a fasting state. Right wrist was prepped and draped in a sterile fashion. A 20-gauge IV was inserted in the right antecubital vein using modified Seldinger technique in the holding area and a sterile dressing was placed over the IV for right heart catheterization. Sterile dressing over the right antecubital IV was removed and IV catheter was wired using micropuncture wire, followed by insertion of 6-[place] Slender sheath. We then proceeded to perform right heart catheterization using a 6-[place] thermodilution [place] catheter as well as cardiac outputs. The results are as described below [place] catheter was then removed and we proceeded with coronary angiography and left heart catheterization. Access to the right radial artery was obtained using modified Seldinger technique and a 6-[place] Slender sheath was inserted in the right radial artery. Coronary angiography was performed using a 5-[place] Ashli radial catheter. Left heart catheterization was performed using a pigtail catheter. All catheters were removed over a wire. Access sites were closed using a TR band device per the right radial artery and manual compression for the right antecubital vein. There were no immediate complications. The patient tolerated the procedure well. SIGNIFICANT FINDINGS: Codominant coronary system with no significant coronary artery disease, mild plaquing only. There is a small bridge in the mid LAD without any significant systolic kinking to limit flow. Right heart catheterization pressures, right atrial pressure 18/19/16, RV pressure 40/17/18, PA pressure 51/26/36, pulmonary capillary wedge pressure 29/35/26, aortic pressure 189, LV pressure 198, LVEDP 24 mmHg thermodilution cardiac output 4.56 L/minute. Thermodilution cardiac index 2.2 L/minute per meters squared. No gradient across the aortic valve. GRAFTS AND IMPLANTS: None. SPECIMENS REMOVED: None. COMPLICATIONS: None. ESTIMATED BLOOD LOSS: 10 mL. FINAL RECOMMENDATIONS: Start diuretics. Follow up in clinic 2 weeks postprocedure. MD BRAVO Summers/KAYLA /[id number]
== END | disposition home or self-care (01) ==
LOC: CATH LAB 06:02
PROVIDERS: ATTEND Internal Medicine
DX: I25.118 Atherosclerotic heart disease of native coronary artery with other forms of angina pectoris (principal); Z01.812 Encounter for preprocedural laboratory examination; Z79.02 Long term (current) use of antithrombotics/antiplatelets
CPT/HCPCS: 36415; 80053; 85025; 85610; 93460; 99152; 99153; C1751; C1766; C1769; C1887; J1644; J2001; J2250; J3010; J7030; Q9967

== ENCOUNTER 2019-06-29 17:17 | Observation (INO) | payer OTHER ==
[~2019-06-29] VITALS: Ht 160 cm; Wt 120.2 kg
[~2019-06-29 17:17] MED LIST changes: -FENTANYL CITRATE/PF 100MCG/2 ML INJ ONE; -HEPARIN SOD (PORCINE) 1000 UNIT/ML 30ML ONE; -HEPARIN SOD/SOD CHLORIDE 2,000 ML ONE; -HYDROCODONE/APAP 5MG-325MG TAB ONE; -IOPAMIDOL 370 MG/ML 200 ML INFUS..BTL INJ ONE; -LIDOCAINE HCL 2% LOCAL 20 ML VIAL ONE; -MECLIZINE HCL12.5 MG PO; -MIDAZOLAM HCL 2 MG/2 ML VIAL ONE; -NITROGLYCERIN/D5W 200 MCG/ML 250 ML ONE; -SODIUM CHLORIDE 0.9% 1000ML 1,000 ML ONE; -VERAPAMIL HCL 2.5 MG/ML 2 ML VIAL ONE
[2019-06-29 18:35] LABS: EOSINOPHILS % 0.2 % (0.0-6.0); LYMPHOCYTES % 3.5 % (18.0-39.1); MEAN CORPUSCULAR HGB CONC 32.6 g/dL (31-35); MEAN CORPUSCULAR VOLUME 92.3 fL (81-99); MONOCYTES % 0.5 % (4.4-11.3); NEUTROPHILS % 3.3 % (38.7-80.0); PLATELET COUNT 246 x10e3/uL (140-360); RED BLOOD COUNT 4.66 x10e6/uL (3.6-5.1); RED CELL DISTRIBUTION WIDTH 13.7 % (11.7-14.4)
[2019-06-29 18:55] LABS: INR 1.18; PROTHROMBIN TIME 15.8 seconds (11.9-14.5)
[2019-06-29 18:57] LABS: CLARITY,URINE CLEAR (CLEAR); COLOR,URINE YELLOW (YELLOW); LEUKOCYTE ESTERASE ,URINE NEGATIVE (NEGATIVE); NITRITE,URINE NEGATIVE (NEGATIVE); PROTEIN,URINE DIPSTICK NEGATIVE (NEGATIVE)
--- NOTE | 2019-06-29 18:57 | Diagnostic Imaging Report ---
Examination: CT BRAIN WO CONTRAST HISTORY: 68-year-old male with head pain/pressure and difficulty hearing within the left ear for approximately 2 days COMPARISON: None. TECHNIQUE: Noncontrast axial scans were obtained from skull base to the vertex. Coronal and sagittal reconstructions obtained from the axial data. One or more of the following dose reduction techniques were used: Automated exposure control, adjustment of the mA and/or kV according to patient size, and/or utilization of iterative reconstruction technique. DISCUSSION: Scalp/Skull: Unremarkable. Brain sulci: Appropriate for patient's age. Ventricles: Normal in size and configuration. No hydrocephalus. Extra-axial spaces: No masses or fluid collections. Parenchyma: No mass, hemorrhage, or large vascular territory acute infarct. Dural sinuses: No abnormal densities. Sellar/Suprasellar region: Intact. No masses. Skull base: Intact. Incidental findings: None. IMPRESSION: No acute intracranial abnormalities. This preliminary report was issued by Dr. Salvador Zhou M.D. neuroradiology fellow at 1857 hours on 06/29/2019. The images and preliminary report were reviewed and signed by Dr. Naomi Booth, neuroradiology faculty, on 06/29/2019 at 2020 hours. Signed by: Dr. Naomi Booth M.D. on 06/29/2019 8:21 PM
[2019-06-29 18:58] LABS: BACTERIA,URINE FEW /HPF; BILIRUBIN,URINE NEGATIVE (NEGATIVE); EPITHELIAL CELLS,URINE FEW /LPF; HYALINE CASTS 0-1 (0-1); KETONES,URINE NEGATIVE (NEGATIVE); RBC,URINE 0-5 /HPF (0-5); RENAL EPITHELIAL CELLS,URINE RARE; URINE UROBILINOGEN 0.2 mg/dL (0.2 - 1); WBC,URINE (MAN) 0-5 /HPF (0-5)
[2019-06-29 19:04] LABS: ANION GAP 17.2 mmol/L (8-16); CREATININE, SERUM 1.41 mg/dL (0.57-1.11); POTASSIUM 4.2 mmol/L (3.5-5.1)
[2019-06-29 19:05] LABS: ALBUMIN 3.9 g/dL (3.5-5.0); ALBUMIN/GLOBULIN RATIO 0.9 (0.8-2.0); CALCIUM 9.6 mg/dL (8.4-10.2)
[2019-06-29 19:06] LABS: CREATINE KINASE MB 5.9 ng/mL (0-5.0)
[2019-06-29] MEDS ORDERED: SODIUM CHLORIDE 0.9% 1000ML 1,000 ML IV STA (19:21)
[2019-06-29] MEDS ORDERED: TRAMADOL HCL 50 MG TAB PO ONE (19:30)
--- NOTE | 2019-06-29 19:42 | Diagnostic Imaging Report ---
EXAMINATION: CHEST SINGLE (PORTABLE) INDICATION: Chest pain ^ERMD ORDER ^Y COMPARISON: 04/30/2019 FINDINGS: TUBES and LINES: None. LUNGS: Lungs are well inflated. Lungs are clear. There is no evidence of pneumonia or pulmonary edema. PLEURA: No pleural effusion or pneumothorax. HEART AND MEDIASTINUM: The cardiomediastinal silhouette is unremarkable. BONES AND SOFT TISSUES: No acute osseous lesion. Soft tissues are unremarkable. UPPER ABDOMEN: No free air under the diaphragm. IMPRESSION: No acute thoracic abnormality. Signed by: Dr. Kaushik Flores M.D. on 06/29/2019 7:39 PM
[2019-06-29] MEDS ORDERED: ONDANSETRON HCL INJ 2MG/ML 2ML 2 MG/ML VIAL IV STA (21:43)
[2019-06-29] MEDS ORDERED: ACETAMIN/BUTALBITAL/CAFFEINE TAB PO ONE (21:45)
[2019-06-29] MEDS ORDERED: MECLIZINE HCL 12.5 MG TAB PO ONE (21:45)
[2019-06-29] MEDS ORDERED: HYDRALAZINE HCL 20 MG/ML VIAL IV STA (21:47)
[2019-06-29] MEDS ORDERED: HYDRALAZINE HCL 20 MG/ML VIAL ONE (21:55)
[2019-06-29 22:20] LABS: ALBUMIN 3.6 g/dL (3.5-5.0); ALBUMIN/GLOBULIN RATIO 0.9 (0.8-2.0); CALCIUM 8.9 mg/dL (8.4-10.2); CREATININE, SERUM 1.1 mg/dL (0.57-1.11)
[2019-06-29 22:39] LABS: CREATINE KINASE MB 5.5 ng/mL (0-5.0)
[2019-06-30] MEDS ORDERED: LORAZEPAM INJ 2 MG/ML VIAL IV ONE
[2019-06-30] MEDS ORDERED: ONDANSETRON HCL INJ 2MG/ML 2ML 2 MG/ML VIAL IV PRN (01:00)
[2019-06-30] MEDS ORDERED: MECLIZINE HCL 12.5 MG TAB PO PRN (01:00)
[2019-06-30] MEDS ORDERED: PROMETHAZINE HCL (IM) 25 MG/ML VIAL ONE (01:08)
[2019-06-30] MEDS ORDERED: PROMETHAZINE HCL (IM) 25 MG/ML VIAL IM ONE (01:30)
[2019-06-30] MEDS: SODIUM CHLORIDE 0.9% 1000ML 1,000 ML IV SCH ×2 (07:31→12:53)
[2019-06-30 08:36] LABS: CREATINE KINASE 165 IU/L (29-168)
--- NOTE | 2019-06-30 11:50 | Diagnostic Imaging Report ---
History: Dizziness, pressure headaches Comparison studies: CT head 06/29/2019 Technique: Sagittal T2; axial DWI, FLAIR, MPGR, T1, Coronal FLAIR. Intravenous contrast: None Findings: Scalp: Normal in signal . No masses . Bone marrow: Normal in signal intensity. Extra-axial:. No masses, no fluid collections. Brain sulci: Appropriate for age. Ventricles: Normal in size . No hydrocephalus . Parenchyma: Few punctate T-2/flair hyperintensities of the supratentorial white matter No masses, hemorrhage, acute or chronic vascular insults. Suprasellar region: No abnormalities. Craniocervical junction: No abnormalities. Patent foramen magnum. No Chiari one malformation. Vessels: Normal flow-voids in the arteries and sinuses. IMPRESSION: 1. No acute abnormalities. 2. Minimal chronic microvascular ischemic changes of the white matter Signed by: DR Alexander Ortega M.D. on 06/30/2019 11:47 AM
[2019-06-30] MEDS ORDERED: MECLIZINE HCL12.5 MG PO ×2 (14:59→15:00)
== END 2019-06-30 15:21 | disposition home or self-care (01) ==
LOC: ER 17:17 → ERHOLD 06-30 00:46 → MED/SURG2 06-30 12:28
DX: R51 Headache (principal); I10 Essential (primary) hypertension; E66.9 Obesity, unspecified; Z68.42 Body mass index [BMI] 45.0-49.9, adult; H81.10 Benign paroxysmal vertigo, unspecified ear
CPT/HCPCS: 36415; 70450; 70551; 71045; 80053; 81001; 82550; 82553; 83880; 84484; 85025; 85610; 85730; 87086; 93005; 96360; 99284; G0378; J0360; J2060; J2405; J2550; J7030

== ENCOUNTER → 2020-04-03 | Day surgery (SDC) | payer OTHER ==
[2020-03-31 15:34] LABS: BASOPHILS % 0.4 % (0.0-1.0); EOSINOPHILS # (AUTO) 0.2 (0.0-0.4); EOSINOPHILS % 2.7 % (0.0-6.0); HEMATOCRIT 41.5 % (34.2-44.1); HEMOGLOBIN 13.1 g/dL (12.0-16.0); LYMPHOCYTES % 38.1 % (18.0-39.1); MEAN CORPUSCULAR HEMOGLOBIN 29.6 pg (28-32); MEAN CORPUSCULAR HGB CONC 31.6 g/dL (31-35); MEAN CORPUSCULAR VOLUME 93.7 fL (81-99); MONOCYTES # (AUTO) 0.6 (0.2-0.8); MONOCYTES % 8.1 % (4.4-11.3); NEUTROPHILS # (AUTO) 3.9 (2.1-6.9); NEUTROPHILS % 50.3 % (38.7-80.0); PLATELET COUNT 229 x10e3/uL (140-360); RED BLOOD COUNT 4.43 x10e6/uL (3.6-5.1); RED CELL DISTRIBUTION WIDTH 14.6 % (11.7-14.4)
[~2020-04-03] MED LIST changes: +MECLIZINE HCL12.5 MG PO; +MIDAZOLAM HCL 2 MG/2 ML VIAL ONE; +PROPOFOL IV EMULSION 10 MG/ML 20 ML VIAL ONE
[2020-04-03 10:05] VITALS: BP 152/87
== END | disposition home or self-care (01) ==
LOC: OR 07:48
PROVIDERS: ATTEND Internal Medicine Gastroenterology
DX: Z12.11 Encounter for screening for malignant neoplasm of colon (principal); K57.30 Diverticulosis of large intestine without perforation or abscess without bleeding; K64.8 Other hemorrhoids; Z71.3 Dietary counseling and surveillance; G47.33 Obstructive sleep apnea (adult) (pediatric); I10 Essential (primary) hypertension; E66.01 Morbid (severe) obesity due to excess calories; I48.91 Unspecified atrial fibrillation; Z01.810 Encounter for preprocedural cardiovascular examination; Z01.812 Encounter for preprocedural laboratory examination; Z20.828 Contact with and (suspected) exposure to other viral communicable diseases; Z79.02 Long term (current) use of antithrombotics/antiplatelets; Z86.19 Personal history of other infectious and parasitic diseases; Z87.891 Personal history of nicotine dependence
CPT/HCPCS: 36415; 45378; 85025; 93005; G0121; J2250; U0002

== ENCOUNTER 2020-08-08 15:14 | Emergency (ER) | payer MEDICARE, OTHER ==
[~2020-08-08] VITALS: Ht 312.4 cm; Wt 120.2 kg
[~2020-08-08 15:14] MED LIST changes: -MIDAZOLAM HCL 2 MG/2 ML VIAL ONE; -PROPOFOL IV EMULSION 10 MG/ML 20 ML VIAL ONE
[2020-08-08] MEDS ORDERED: ASPIRIN 81 MG CHEW TAB PO ONE ×2 (16:45→17:00)
[2020-08-08 17:00] LABS: BASOPHILS # (AUTO) 0.1 (0.0-0.1); BASOPHILS % 0.6 % (0.0-1.0); EOSINOPHILS # (AUTO) 0.1 (0.0-0.4); HEMATOCRIT 43.3 % (34.2-44.1); LYMPHOCYTES # (AUTO) 2.6 (1.0-3.2); LYMPHOCYTES % 28.9 % (18.0-39.1); MEAN CORPUSCULAR HEMOGLOBIN 30.8 pg (28-32); MEAN CORPUSCULAR HGB CONC 32.3 g/dL (31-35); MEAN CORPUSCULAR VOLUME 95.2 fL (81-99); MONOCYTES # (AUTO) 0.7 (0.2-0.8); MONOCYTES % 7.4 % (4.4-11.3); NEUTROPHILS # (AUTO) 5.5 (2.1-6.9); NEUTROPHILS % 61.5 % (38.7-80.0); PLATELET COUNT 228 x10e3/uL (140-360); RED BLOOD COUNT 4.55 x10e6/uL (3.6-5.1); RED CELL DISTRIBUTION WIDTH 15.3 % (11.7-14.4)
[2020-08-08 17:04] LABS: CLARITY,URINE HAZY (CLEAR); COLOR,URINE PINK (YELLOW); LEUKOCYTE ESTERASE ,URINE SMALL (NEGATIVE); NITRITE,URINE NEGATIVE (NEGATIVE)
[2020-08-08 17:05] LABS: KETONES,URINE NEGATIVE (NEGATIVE); PROTEIN,URINE DIPSTICK >=300 (NEGATIVE); URINE UROBILINOGEN 0.2 mg/dL (0.2 - 1)
[2020-08-08 17:16] LABS: ALBUMIN 4.1 g/dL (3.5-5.0); ALBUMIN/GLOBULIN RATIO 0.9 (0.8-2.0); ANION GAP 15.7 mmol/L (8-16); CALCIUM 9.2 mg/dL (8.4-10.2); CREATININE, SERUM 0.97 mg/dL (0.57-1.11); POTASSIUM 3.7 mmol/L (3.5-5.1)
[2020-08-08 17:17] LABS: BACTERIA,URINE MODERATE /HPF; RBC,URINE 21-50 /HPF (0-5)
[2020-08-08 17:23] LABS: CREATINE KINASE MB 2.7 ng/mL (0-5.0)
[2020-08-08] MEDS ORDERED: ACETAMINOPHEN 325 MG TAB PO ONE (17:30)
[2020-08-08 18:37] VITALS: BP 143/86
[2020-08-09] MEDS ORDERED: POTASSIUM CHLORIDE 20 MEQ TAB CR PO SCH (09:00)
== END 2020-08-08 18:35 | disposition home or self-care (01) ==
LOC: ER 15:25 → UNDOADMOB 17:40 → ERHOLD 17:40
DX: R05 Cough (principal); R06.00 Dyspnea, unspecified; J40 Bronchitis, not specified as acute or chronic; R50.9 Fever, unspecified; R53.1 Weakness; N39.0 Urinary tract infection, site not specified; I10 Essential (primary) hypertension; E11.9 Type 2 diabetes mellitus without complications
CPT/HCPCS: 36415; 71045; 80053; 81001; 82550; 82553; 83880; 84484; 85025; 93005; 99283; U0002

== ENCOUNTER → 2020-09-25 | Outpatient (CLI) | payer OTHER ==
[~2020-09-25] MED LIST changes: +IOPAMIDOL 370 MG/ML 200 ML INFUS..BTL INJ ONE; +SODIUM CHLORIDE 0.9% 50ML 50 ML ONE
[2020-09-25 10:10] LABS: BLOOD UREA NITROGEN 25 mg/dL (7-26); BUN/CREATININE RATIO 27 (6-25); CREATININE, SERUM 0.91 mg/dL (0.57-1.11); EST GLOMERULAR FILTRATION RATE > 60 ML/MIN (60-)
== END ==
LOC: CT 09:18
PROVIDERS: ATTEND Internal Medicine Critical Care Medicine
DX: R07.9 Chest pain, unspecified (principal)
CPT/HCPCS: 36415; 71260; 82565; 84520; Q9967

== ENCOUNTER → 2021-01-06 | Day surgery (SDC) | payer MEDICARE, OTHER ==
[~2021-01-06] MED LIST changes: +HYDROCODONE; -IOPAMIDOL 370 MG/ML 200 ML INFUS..BTL INJ ONE; +LOSARTAN POTASS25 MG PO; +OR PHACO EYE KIT ONE; +PREOP PHACO EYE KIT ONE; -SODIUM CHLORIDE 0.9% 50ML 50 ML ONE
[2021-01-06 14:15] VITALS: BP 124/78
== END | disposition home or self-care (01) ==
LOC: OR 12:21
PROVIDERS: ATTEND Ophthalmology
DX: H25.11 Age-related nuclear cataract, right eye (principal); G47.33 Obstructive sleep apnea (adult) (pediatric); I48.91 Unspecified atrial fibrillation; I10 Essential (primary) hypertension; K21.9 Gastro-esophageal reflux disease without esophagitis; Z01.810 Encounter for preprocedural cardiovascular examination; Z01.812 Encounter for preprocedural laboratory examination; Z20.822 Contact with and (suspected) exposure to COVID-19; Z79.02 Long term (current) use of antithrombotics/antiplatelets; Z86.19 Personal history of other infectious and parasitic diseases
CPT/HCPCS: 93005; U0002; V2632

== ENCOUNTER → 2021-01-20 | Day surgery (SDC) | payer MEDICARE, OTHER ==
[~2021-01-20] MED LIST changes: +BALANCED SALT SOLN (OPTH) 15 ML BTL IO ONE; +HYDROCODON-ACE1 EA16 PO
[2021-01-20 14:57] VITALS: BP 134/70
== END | disposition home or self-care (01) ==
LOC: OR 12:06
PROVIDERS: ATTEND Ophthalmology
DX: H25.12 Age-related nuclear cataract, left eye (principal); G47.33 Obstructive sleep apnea (adult) (pediatric); I48.91 Unspecified atrial fibrillation; E11.22 Type 2 diabetes mellitus with diabetic chronic kidney disease; E11.65 Type 2 diabetes mellitus with hyperglycemia; I12.9 Hypertensive chronic kidney disease with stage 1 through stage 4 chronic kidney disease, or unspecified chronic kidney disease; N18.30 Chronic kidney disease, stage 3 unspecified; J30.9 Allergic rhinitis, unspecified; K21.9 Gastro-esophageal reflux disease without esophagitis; E66.01 Morbid (severe) obesity due to excess calories; M85.80 Other specified disorders of bone density and structure, unspecified site; G89.29 Other chronic pain; Z01.812 Encounter for preprocedural laboratory examination; Z20.822 Contact with and (suspected) exposure to COVID-19; Z79.02 Long term (current) use of antithrombotics/antiplatelets; Z68.43 Body mass index [BMI] 50.0-59.9, adult; Z86.19 Personal history of other infectious and parasitic diseases; Z87.891 Personal history of nicotine dependence
CPT/HCPCS: U0002; V2632

== ENCOUNTER 2021-09-16 08:13 | Emergency (ER) | payer MEDICARE, OTHER ==
[~2021-09-16] VITALS: Ht 312.4 cm; Wt 120.2 kg
[~2021-09-16 08:13] MED LIST changes: -BALANCED SALT SOLN (OPTH) 15 ML BTL IO ONE; -OR PHACO EYE KIT ONE; -PREOP PHACO EYE KIT ONE
[2021-09-16] MEDS ORDERED: ONDANSETRON HCL INJ 2MG/ML 2ML 2 MG/ML VIAL IV STA (08:20)
[2021-09-16] MEDS ORDERED: Morphine 4mg Syringe 4 MG/ML INJ IV ONE (08:30)
[2021-09-16 08:38] LABS: BASOPHILS % 0.6 % (0.0-1.0); EOSINOPHILS # (AUTO) 0.1 (0.0-0.4); HEMATOCRIT 42.2 % (34.2-44.1); HEMOGLOBIN 13.7 g/dL (12.0-16.0); LYMPHOCYTES # (AUTO) 2.3 (1.0-3.2); LYMPHOCYTES % 33.1 % (18.0-39.1); MEAN CORPUSCULAR HEMOGLOBIN 30.7 pg (28-32); MEAN CORPUSCULAR HGB CONC 32.5 g/dL (31-35); MEAN CORPUSCULAR VOLUME 94.6 fL (81-99); MONOCYTES # (AUTO) 0.5 (0.2-0.8); MONOCYTES % 7.8 % (4.4-11.3); NEUTROPHILS # (AUTO) 3.9 (2.1-6.9); NEUTROPHILS % 56.1 % (38.7-80.0); PLATELET COUNT 239 x10e3/uL (140-360); RED BLOOD COUNT 4.46 x10e6/uL (3.6-5.1); RED CELL DISTRIBUTION WIDTH 13.6 % (11.7-14.4)
[2021-09-16 09:02] LABS: ALBUMIN 3.3 g/dL (3.5-5.0); ALBUMIN/GLOBULIN RATIO 0.8 (0.8-2.0); ANION GAP 11.1 mmol/L (8-16); CALCIUM 8.6 mg/dL (8.4-10.2); CREATININE, SERUM 0.89 mg/dL (0.57-1.11); POTASSIUM 4.1 mmol/L (3.5-5.1)
[2021-09-16] MEDS ORDERED: SODIUM CHLORIDE 0.9% 1000ML 1,000 ML IV SCH (09:15)
[2021-09-16 10:48] LABS: CLARITY,URINE CLEAR (CLEAR); COLOR,URINE YELLOW (YELLOW); LEUKOCYTE ESTERASE ,URINE NEGATIVE (NEGATIVE)
[2021-09-16 10:49] LABS: KETONES,URINE NEGATIVE (NEGATIVE); NITRITE,URINE NEGATIVE (NEGATIVE); PROTEIN,URINE DIPSTICK NEGATIVE (NEGATIVE); URINE UROBILINOGEN 0.2 mg/dL (0.2 - 1)
[2021-09-16 10:53] LABS: BACTERIA,URINE MODERATE /HPF; EPITHELIAL CELLS,URINE MODERATE /LPF; RBC,URINE 0-5 /HPF (0-5); WBC,URINE (MAN) 0-5 /HPF (0-5)
[2021-09-16] MEDS ORDERED: CYCLOBENZAPRINE5 MG PO (10:59)
[2021-09-16] MEDS ORDERED: LIDOCAINE1 EACH TD (10:59)
[2021-09-16] MEDS ORDERED: HYDROCODON-ACE1 EA11 PEG (10:59)
== END 2021-09-16 11:35 | disposition home or self-care (01) ==
LOC: ER 08:30
DX: M54.10 Radiculopathy, site unspecified (principal); R10.9 Unspecified abdominal pain; I10 Essential (primary) hypertension; I48.91 Unspecified atrial fibrillation; K21.9 Gastro-esophageal reflux disease without esophagitis; E11.9 Type 2 diabetes mellitus without complications; Z79.02 Long term (current) use of antithrombotics/antiplatelets; Z79.899 Other long term (current) drug therapy
CPT/HCPCS: 36415; 74176; 80053; 81001; 85025; 99284; J2270; J2405; J7030

== ENCOUNTER → 2022-07-14 | Day surgery (SDC) | payer OTHER ==
[2022-07-02 11:03] LABS: BASOPHILS % 0.4 % (0.0-1.0); EOSINOPHILS # (AUTO) 0.1 (0.0-0.4); EOSINOPHILS % 2.1 % (0.0-6.0); HEMATOCRIT 47.8 % (34.2-44.1); HEMOGLOBIN 14.5 g/dL (12.0-16.0); LYMPHOCYTES # (AUTO) 2.1 (1.0-3.2); LYMPHOCYTES % 32.1 % (18.0-39.1); MEAN CORPUSCULAR HEMOGLOBIN 30.7 pg (28-32); MEAN CORPUSCULAR HGB CONC 30.3 g/dL (31-35); MEAN CORPUSCULAR VOLUME 101.1 fL (81-99); MONOCYTES # (AUTO) 0.5 (0.2-0.8); MONOCYTES % 7.2 % (4.4-11.3); NEUTROPHILS # (AUTO) 3.9 (2.1-6.9); NEUTROPHILS % 58.1 % (38.7-80.0); PLATELET COUNT 230 x10e3/uL (140-360); RED BLOOD COUNT 4.73 x10e6/uL (3.6-5.1); RED CELL DISTRIBUTION WIDTH 13.2 % (11.7-14.4)
[2022-07-02 11:18] LABS: ANION GAP 12.8 mmol/L (8-16); CALCIUM 9.7 mg/dL (8.4-10.2); CREATININE, SERUM 0.94 mg/dL (0.57-1.11); POTASSIUM 4.8 mmol/L (3.5-5.1)
[~2022-07-14] MED LIST changes: +ACETAMINOPHEN/CODEINE 300MG - 30MG TAB ONE; +BUPIVACAINE 0.5%/EPI 30 ML SDV INJ ONE; +CEFAZOLIN SODIUM 2 GM ONE; +CYCLOBENZAPRINE5 MG PO; +DEXAMETHASONE SOD PHOS INJ 4 MG/ML SDV ONE; +FENTANYL CITRATE/PF 100MCG/2 ML INJ ONE; +HYDROCODON-ACE1 EA11 PEG; +HYDROMORPHONE 1MG/1ML INJ ONE; +LIDOCAINE HCL 2% LOCAL INJ 5 ML SDV VIAL INJ ONE; +LIDOCAINE1 EACH TD; +LOSARTAN-HCTZ1 EAC1 PO; +ONDANSETRON HCL INJ 2MG/ML 2ML 2 MG/ML VIAL ONE; +POVIDONE IODINE 0.05% 0.05 % ML PO ONE; +PROPOFOL IV EMULSION 10 MG/ML 20 ML VIAL ONE; +SEVOFLURANE INHAL SOLN 250 ML PEN BTL ONE; +SUCCINYLCHOLINE CHLORIDE 20 MG/ML 10ML VIAL ONE
[2022-07-14 10:35] VITALS: BP 153/81
== END | disposition home or self-care (01) ==
LOC: OR 06:41
PROVIDERS: ATTEND Specialist
DX: S83.221A Peripheral tear of medial meniscus, current injury, right knee, initial encounter (principal); M17.11 Unilateral primary osteoarthritis, right knee; M70.51 Other bursitis of knee, right knee; M06.9 Rheumatoid arthritis, unspecified; M22.41 Chondromalacia patellae, right knee; E66.01 Morbid (severe) obesity due to excess calories; G47.33 Obstructive sleep apnea (adult) (pediatric); E11.9 Type 2 diabetes mellitus without complications; K21.9 Gastro-esophageal reflux disease without esophagitis; I10 Essential (primary) hypertension; I48.91 Unspecified atrial fibrillation; E78.5 Hyperlipidemia, unspecified; M54.50 Low back pain, unspecified; X58.XXXA Exposure to other specified factors, initial encounter; Z01.812 Encounter for preprocedural laboratory examination; Z01.818 Encounter for other preprocedural examination; Z79.02 Long term (current) use of antithrombotics/antiplatelets; Z79.899 Other long term (current) drug therapy; Z68.42 Body mass index [BMI] 45.0-49.9, adult; Z86.19 Personal history of other infectious and parasitic diseases
CPT/HCPCS: 36415; 71046; 80048; 85025; J0330; J1100; J1170; J2001; J2405; J3010

== ENCOUNTER 2023-06-21 09:56 | Inpatient (IN) | payer MEDICARE, OTHER ==
[2023-06-21] VITALS (14 sets, daily range): BP systolic 111–135; BP diastolic 42–85; PULSE 57–90; RESP 12–26; TEMP 98–99.3; O2SAT 93–98
[~2023-06-21] VITALS: Ht 160 cm; Wt 129.3 kg
[~2023-06-21 09:56] MED LIST changes: -ACETAMINOPHEN/CODEINE 300MG - 30MG TAB ONE; -BUPIVACAINE 0.5%/EPI 30 ML SDV INJ ONE; -CEFAZOLIN SODIUM 2 GM ONE; -DEXAMETHASONE SOD PHOS INJ 4 MG/ML SDV ONE; +DOXYCYCLINE MO100 MG PO; -FENTANYL CITRATE/PF 100MCG/2 ML INJ ONE; +GLUCOTROL XL10 MG PO; -HYDROMORPHONE 1MG/1ML INJ ONE; -LIDOCAINE HCL 2% LOCAL INJ 5 ML SDV VIAL INJ ONE; -ONDANSETRON HCL INJ 2MG/ML 2ML 2 MG/ML VIAL ONE; +ONDANSETRON ODT4 MG PO; -POVIDONE IODINE 0.05% 0.05 % ML PO ONE; -PROPOFOL IV EMULSION 10 MG/ML 20 ML VIAL ONE; -SEVOFLURANE INHAL SOLN 250 ML PEN BTL ONE; -SUCCINYLCHOLINE CHLORIDE 20 MG/ML 10ML VIAL ONE; +TYLENOL325 MG PO
[2023-06-21 10:54] LABS: BASOPHILS # (AUTO) 0.1 (0.0-0.1); BASOPHILS % 0.3 % (0.0-1.0); EOSINOPHILS # (AUTO) 0.1 (0.0-0.4); EOSINOPHILS % 0.7 % (0.0-6.0); HEMOGLOBIN 14.9 g/dL (12.0-16.0); LYMPHOCYTES # (AUTO) 3.4 (1.0-3.2); MEAN CORPUSCULAR HEMOGLOBIN 31.8 pg (28-32); MEAN CORPUSCULAR HGB CONC 31.7 g/dL (31-35); MEAN CORPUSCULAR VOLUME 100.2 fL (81-99); MONOCYTES # (AUTO) 0.7 (0.2-0.8); MONOCYTES % 4.7 % (4.4-11.3); NEUTROPHILS # (AUTO) 10.5 (2.1-6.9); PLATELET COUNT 190 x10e3/uL (140-360); RED BLOOD COUNT 4.69 x10e6/uL (3.6-5.1); RED CELL DISTRIBUTION WIDTH 13.1 % (11.7-14.4)
[2023-06-21] MEDS: ONDANSETRON HCL INJ 2MG/ML 2ML 2 MG/ML VIAL IV STA (10:55)
[2023-06-21] MEDS: DILTIAZEM HCL 5 MG/ML 5 ML VIAL IV STA ×2 (10:55→11:48)
[2023-06-21 10:58] LABS: CLARITY,URINE CLEAR (CLEAR); COLOR,URINE YELLOW (YELLOW); GLUCOSE, URINE NEGATIVE (NEGATIVE); KETONES,URINE NEGATIVE (NEGATIVE); LEUKOCYTE ESTERASE ,URINE NEGATIVE (NEGATIVE); NITRITE,URINE NEGATIVE (NEGATIVE); PH,URINE 5.5 (5 - 7); PROTEIN,URINE DIPSTICK TRACE (NEGATIVE)
[2023-06-21 10:59] LABS: BILIRUBIN,URINE NEGATIVE (NEGATIVE); URINE UROBILINOGEN 0.2 mg/dL (0.2 - 1)
[2023-06-21] MEDS: SODIUM CHLORIDE 0.9% 500ML 500 ML IV ONE (11:01)
[2023-06-21] MEDS: ACETAMINOPHEN 1000 MG/100 ML IV STA (11:03)
[2023-06-21 11:05] LABS: INR 1.69; PROTHROMBIN TIME 20.2 seconds (11.9-14.5)
[2023-06-21 11:06] LABS: PARTIAL THROMBOPLASTIN TIME 35.4 seconds (23.8-35.5)
[2023-06-21 11:13] LABS: ALANINE AMINOTRANSFERASE 19 IU/L (0-55); ALBUMIN 3.9 g/dL (3.5-5.0); ALKALINE PHOSPHATASE 97 IU/L (40-150); ANION GAP 17.7 mmol/L (8-16); BILIRUBIN,TOTAL 0.7 mg/dL (0.2-1.2); BLOOD UREA NITROGEN 24 mg/dL (7-26); BUN/CREATININE RATIO 24 (6-25); CALCIUM 9.3 mg/dL (8.4-10.2); CARBON DIOXIDE 26 mmol/L (22-29); CHLORIDE 103 mmol/L (98-107); CREATINE KINASE 125 IU/L (29-168); CREATININE, SERUM 0.98 mg/dL (0.57-1.11); EST GLOMERULAR FILTRATION RATE 62 ML/MIN (>=60); GLUCOSE 171 mg/dL (74-118); MAGNESIUM 1.5 MG/DL (1.3-2.1); POTASSIUM 4.7 mmol/L (3.5-5.1); SODIUM 142 mmol/L (136-145); TOTAL PROTEIN 7.9 g/dL (6.5-8.1)
[2023-06-21 11:16] LABS: BACTERIA,URINE RARE /HPF; EPITHELIAL CELLS,URINE RARE /LPF; RBC,URINE 0-5 /HPF (0-5); WBC,URINE (MAN) 0-5 /HPF (0-5)
[2023-06-21 11:20] LABS: B-TYPE NATRIURETIC PEPTIDE2 84.5 pg/mL (0-100); TROPONIN I < 0.001 ng/mL (0-0.300)
[2023-06-21] MEDS ORDERED: DILTIAZEM HCL 100 ML IV SCH (11:30)
[2023-06-21] MEDS: DILTIAZEM HCL IV SOLN 125 MG in SODIUM CHLORIDE 0.9% 100 ML IV SCH (12:05)
[2023-06-21] MEDS: FAMOTIDINE 20 MG/2 ML VIAL IV SCH (12:22)
[2023-06-21] MEDS: SODIUM CHLORIDE 0.9% 1000ML 1,000 ML IV STA (12:29)
[2023-06-21] MEDS: METHYLPREDNISOLONE SOD SUCC 40 MG/ML VIAL 1ML IV ONE (12:40)
[2023-06-21 18:50] LABS: TROPONIN I 0.019 ng/mL (0-0.300)
[2023-06-21] MEDS ORDERED: LYRICA150 MG PO (19:22)
[2023-06-21] MEDS ORDERED: ENTRESTO 24 MG1 EACH PO (19:25)
[2023-06-21] MEDS ORDERED: TURMERIC500 M1 PO (19:27)
[2023-06-21] MEDS ORDERED: OZEMPIC0.25 MG/02 SC (19:29)
[2023-06-22] VITALS (28 sets, daily range): BP systolic 116–154; BP diastolic 58–92; PULSE 53–99; RESP 13–30; TEMP 98–98.1; O2SAT 96–100
[2023-06-22 06:51] LABS: BASOPHILS % 0.1 % (0.0-1.0); HEMATOCRIT 41.6 % (34.2-44.1); HEMOGLOBIN 13.1 g/dL (12.0-16.0); LYMPHOCYTES # (AUTO) 1.4 (1.0-3.2); LYMPHOCYTES % 8.8 % (18.0-39.1); MEAN CORPUSCULAR HGB CONC 31.5 g/dL (31-35); MEAN CORPUSCULAR VOLUME 101.7 fL (81-99); MONOCYTES # (AUTO) 0.5 (0.2-0.8); MONOCYTES % 3.2 % (4.4-11.3); NEUTROPHILS # (AUTO) 13.5 (2.1-6.9); NEUTROPHILS % 87.4 % (38.7-80.0); PLATELET COUNT 170 x10e3/uL (140-360); RED BLOOD COUNT 4.09 x10e6/uL (3.6-5.1); RED CELL DISTRIBUTION WIDTH 13.2 % (11.7-14.4); WHITE BLOOD COUNT 15.47 x10e3/uL (4.8-10.8)
[2023-06-22 07:21] LABS: TROPONIN I 0.006 ng/mL (0-0.300)
[2023-06-22 07:38] LABS: ALBUMIN/GLOBULIN RATIO 0.8 (0.8-2.0); ANION GAP 12.3 mmol/L (8-16); BILIRUBIN,TOTAL 0.7 mg/dL (0.2-1.2); CHOL/HDL RATIO 3.2 (3.0-3.6); CREATININE, SERUM 0.84 mg/dL (0.57-1.11); POTASSIUM 4.3 mmol/L (3.5-5.1); TOTAL PROTEIN 6.8 g/dL (6.5-8.1)
[2023-06-22] MEDS: METOPROLOL SUCCINATE 50 MG TAB XL PO ONE (08:01)
[2023-06-22] MEDS: RIVAROXABAN 20 MG TABLET PO SCH (08:01)
[2023-06-22] MEDS: PANTOPRAZOLE SOD 40 MG TABEC PO SCH (08:02)
[2023-06-22] MEDS ORDERED: DEXTROSE 50% SYRINGE 50 ML IV PRN (09:00)
[2023-06-22] MEDS: INSULIN LISPRO 100 UNIT/1 ML 3ML VIAL SQ SCH (10:45)
[2023-06-22] MEDS: ACETAMINOPHEN 325 MG TAB PO PRN (11:04)
[2023-06-22 15:04] LABS: CREATINE KINASE 33 IU/L (29-168)
[2023-06-22 15:10] LABS: TROPONIN I < 0.001 ng/mL (0-0.300)
[2023-06-23] VITALS (13 sets, daily range): BP systolic 118–174; BP diastolic 51–138; PULSE 57–98; RESP 16–33; TEMP 98.5–99.6; O2SAT 93–99
[2023-06-23 06:54] LABS: BASOPHILS % 0.3 % (0.0-1.0); EOSINOPHILS # (AUTO) 0.1 (0.0-0.4); EOSINOPHILS % 0.8 % (0.0-6.0); HEMATOCRIT 41.8 % (34.2-44.1); HEMOGLOBIN 12.8 g/dL (12.0-16.0); LYMPHOCYTES # (AUTO) 2.4 (1.0-3.2); LYMPHOCYTES % 18.6 % (18.0-39.1); MEAN CORPUSCULAR HEMOGLOBIN 31.2 pg (28-32); MEAN CORPUSCULAR HGB CONC 30.6 g/dL (31-35); MONOCYTES # (AUTO) 0.7 (0.2-0.8); MONOCYTES % 5.2 % (4.4-11.3); NEUTROPHILS # (AUTO) 9.7 (2.1-6.9); NEUTROPHILS % 74.8 % (38.7-80.0); PLATELET COUNT 182 x10e3/uL (140-360); RED CELL DISTRIBUTION WIDTH 13.1 % (11.7-14.4); WHITE BLOOD COUNT 12.98 x10e3/uL (4.8-10.8)
[2023-06-23 07:30] LABS: ANION GAP 11.1 mmol/L (8-16); CALCIUM 9.1 mg/dL (8.4-10.2); CREATININE, SERUM 0.83 mg/dL (0.57-1.11); POTASSIUM 4.1 mmol/L (3.5-5.1)
[2023-06-23] MEDS: LOPERAMIDE HCL 2 MG CAP PO PRN (17:17)
[2023-06-23] MEDS: SACUBITRIL/VALSARTAN 24MG/26MG 1 EA TAB PO SCH (17:17)
[2023-06-23] MEDS: METOPROLOL SUCCINATE 50 MG TAB XL PO SCH (17:18)
[2023-06-24] VITALS (12 sets, daily range): BP systolic 140–162; BP diastolic 65–84; PULSE 60–92; RESP 16–26; TEMP 98.2–98.6; O2SAT 94–100
[2023-06-24] MEDS: ONDANSETRON HCL INJ 2MG/ML 2ML 2 MG/ML VIAL IV PRN (08:20)
[2023-06-24] MEDS ORDERED: LEVALBUTEROL HCL SOLN NEBU 1.25 MG/3 ML NEB INH PRN (09:45)
[2023-06-24] MEDS: LEVALBUTEROL HCL SOLN NEBU 1.25 MG/3 ML NEB INH SCH (09:45)
[2023-06-24] MEDS: IPRATROPIUM BROMIDE 0.02% 2.5 ML NEB NEB SCH (09:45)
[2023-06-24] MEDS: GUAIFENESIN 600 MG TAB PO SCH (12:38)
[2023-06-24] MEDS: DOXYCYCLINE HYCLATE TABLET 100 MG TAB PO SCH (12:38)
[2023-06-24] MEDS: FUROSEMIDE INJ 10 MG/ML 2 ML VIAL IV SCH (12:54)
[2023-06-24] MEDS ORDERED: METFORMIN HCL500 MG PO (18:34)
[2023-06-25] VITALS (13 sets, daily range): BP systolic 94–142; BP diastolic 56–77; PULSE 56–95; RESP 16–23; TEMP 97.7–98.6; O2SAT 92–99
[2023-06-26] VITALS (11 sets, daily range): BP systolic 97–139; BP diastolic 58–99; PULSE 60–94; RESP 16–20; TEMP 97.6–98.5; O2SAT 95–100
[2023-06-26 04:50] LABS: BASOPHILS % 0.4 % (0.0-1.0); EOSINOPHILS # (AUTO) 0.3 (0.0-0.4); EOSINOPHILS % 2.7 % (0.0-6.0); HEMATOCRIT 42.8 % (34.2-44.1); HEMOGLOBIN 13.4 g/dL (12.0-16.0); LYMPHOCYTES # (AUTO) 2.6 (1.0-3.2); LYMPHOCYTES % 28.6 % (18.0-39.1); MEAN CORPUSCULAR HEMOGLOBIN 31.4 pg (28-32); MEAN CORPUSCULAR HGB CONC 31.3 g/dL (31-35); MEAN CORPUSCULAR VOLUME 100.2 fL (81-99); MONOCYTES # (AUTO) 0.6 (0.2-0.8); MONOCYTES % 6.6 % (4.4-11.3); NEUTROPHILS # (AUTO) 5.6 (2.1-6.9); NEUTROPHILS % 61.5 % (38.7-80.0); PLATELET COUNT 199 x10e3/uL (140-360); RED BLOOD COUNT 4.27 x10e6/uL (3.6-5.1); RED CELL DISTRIBUTION WIDTH 13.2 % (11.7-14.4); WHITE BLOOD COUNT 9.11 x10e3/uL (4.8-10.8)
[2023-06-26 04:58] LABS: MAGNESIUM 1.6 MG/DL (1.3-2.1); PHOSPHORUS 2.9 MG/DL (2.3-4.7)
[2023-06-26 05:03] LABS: ANION GAP 13.4 mmol/L (8-16); CREATININE, SERUM 0.82 mg/dL (0.57-1.11)
[2023-06-26 05:18] LABS: POTASSIUM 3.4 mmol/L (3.5-5.1)
[2023-06-26] MEDS: SODIUM CHLORIDE 0.9% 250ML 250 ML ONE (23:16)
[2023-06-27] VITALS: BP 116/52; PULSE 82; RESP 18; TEMP 97.8; O2SAT 98
[2023-06-27 04:00] VITALS: BP 125/52; PULSE 75; RESP 18; TEMP 97.5; O2SAT 98
[2023-06-27 08:00] VITALS: BP 123/73; PULSE 85; RESP 20; TEMP 98.1; O2SAT 98
[2023-06-27 08:32] VITALS: PULSE 84; RESP 20; O2SAT 95
[2023-06-27 10:48] VITALS: BP 123/73; PULSE 85; RESP 20; TEMP 98.1; O2SAT 95
== END 2023-06-27 11:37 | disposition home health service (06) | DRG 871 ==
LOC: ER 10:04 → ERHOLD 12:07 → ICU 15:46 → MED/SURG2 06-25 15:11 → MED/SURG 06-26 21:14
PROVIDERS: ADMIT Internal Medicine; ATTEND Internal Medicine
PROC: 3E04329 Introduction of Other Anti-infective into Central Vein, Percutaneous Approach (ICD-10-PCS; principal; 2023-06-22)
PROC: 02HV33Z Insertion of Infusion Device into Superior Vena Cava, Percutaneous Approach (ICD-10-PCS; 2023-06-22)
PROC: B548ZZA Ultrasonography of Superior Vena Cava, Guidance (ICD-10-PCS; 2023-06-22)
DX: A41.9 Sepsis, unspecified organism (principal); I50.33 Acute on chronic diastolic (congestive) heart failure; J96.01 Acute respiratory failure with hypoxia; J69.0 Pneumonitis due to inhalation of food and vomit; E87.20 Acidosis, unspecified; Z68.43 Body mass index [BMI] 50.0-59.9, adult; I11.0 Hypertensive heart disease with heart failure; I48.0 Paroxysmal atrial fibrillation; R65.20 Severe sepsis without septic shock; E66.01 Morbid (severe) obesity due to excess calories; E11.9 Type 2 diabetes mellitus without complications; K21.9 Gastro-esophageal reflux disease without esophagitis; M54.9 Dorsalgia, unspecified; G47.33 Obstructive sleep apnea (adult) (pediatric); G89.29 Other chronic pain; Z95.1 Presence of aortocoronary bypass graft; Z79.84 Long term (current) use of oral hypoglycemic drugs; Z79.899 Other long term (current) drug therapy; Z79.01 Long term (current) use of anticoagulants; Z20.822 Contact with and (suspected) exposure to COVID-19
CPT/HCPCS: 36415; 36569; 71045; 71250; 74230; 80048; 80053; 80061; 81001; 82550; 82948; 83036; 83605; 83735; 83880; 84100; 84484; 85025; 85610; 85730; 87040; 87086; 87400; 87420; 93005; 93306; 94660; 94799; 96372; 99252; 99284; J0696; J1940; J2405; J2543; J2920; J7030; J7040; J7050; U0002

== ENCOUNTER 2023-12-09 15:26 | Emergency (ER) | payer MEDICARE, OTHER ==
[~2023-12-09] VITALS: Ht 160 cm; Wt 124.3 kg
[~2023-12-09 15:26] MED LIST changes: +AMOX TR-K CLV1 EAC2 PO; +AZITHROMYCIN250 MG PO; +ENTRESTO 24 MG1 EACH PO; +LYRICA150 MG PO; +METFORMIN HCL500 MG PO; +OZEMPIC0.25 MG/02 SC; +TURMERIC500 M1 PO
[2023-12-09 16:23] VITALS: TEMP 98.7
[2023-12-09 17:09] LABS: COLOR,URINE YELLOW (YELLOW)
[2023-12-09 17:10] LABS: CLARITY,URINE HAZY (CLEAR); LEUKOCYTE ESTERASE ,URINE TRACE (NEGATIVE); NITRITE,URINE NEGATIVE (NEGATIVE); PH,URINE 6 (5 - 7); PROTEIN,URINE DIPSTICK 1+ (NEGATIVE); URINE UROBILINOGEN 0.2 mg/dL (0.2 - 1)
[2023-12-09 17:11] LABS: BILIRUBIN,URINE NEGATIVE (NEGATIVE); GLUCOSE, URINE >=1000 (NEGATIVE); KETONES,URINE NEGATIVE (NEGATIVE)
[2023-12-09 17:18] LABS: BASOPHILS % 0.3 % (0.0-1.0); EOSINOPHILS # (AUTO) 0.1 (0.0-0.4); EOSINOPHILS % 1.7 % (0.0-6.0); HEMATOCRIT 43.9 % (34.2-44.1); HEMOGLOBIN 13.8 g/dL (12.0-16.0); LYMPHOCYTES # (AUTO) 2.5 (1.0-3.2); LYMPHOCYTES % 32.1 % (18.0-39.1); MEAN CORPUSCULAR HEMOGLOBIN 30.1 pg (28-32); MEAN CORPUSCULAR HGB CONC 31.4 g/dL (31-35); MEAN CORPUSCULAR VOLUME 95.6 fL (81-99); MONOCYTES # (AUTO) 0.6 (0.2-0.8); MONOCYTES % 7.4 % (4.4-11.3); NEUTROPHILS # (AUTO) 4.5 (2.1-6.9); NEUTROPHILS % 58.2 % (38.7-80.0); PLATELET COUNT 199 x10e3/uL (140-360); RED BLOOD COUNT 4.59 x10e6/uL (3.6-5.1); RED CELL DISTRIBUTION WIDTH 14.7 % (11.7-14.4); WHITE BLOOD COUNT 7.79 x10e3/uL (4.8-10.8)
[2023-12-09 17:25] LABS: BACTERIA,URINE MODERATE /HPF; WBC,URINE (MAN) 21-50 /HPF (0-5)
[2023-12-09 17:40] LABS: ALBUMIN 3.5 g/dL (3.5-5.0); ANION GAP 19.4 mmol/L (8-16); BILIRUBIN,TOTAL 0.5 mg/dL (0.2-1.2); CALCIUM 9.3 mg/dL (8.4-10.2); CREATININE, SERUM 1.01 mg/dL (0.57-1.11); TOTAL PROTEIN 6.9 g/dL (6.5-8.1)
[2023-12-09 17:41] LABS: POTASSIUM 3.4 mmol/L (3.5-5.1)
[2023-12-09] MEDS ORDERED: IOPAMIDOL 370 MG/ML 100 ML INFUS..BTL INJ ONE (18:01)
[2023-12-09 18:17] VITALS: PULSE 77; RESP 17
[2023-12-09] MEDS: ONDANSETRON HCL INJ 2MG/ML 2ML 2 MG/ML VIAL IV STA (18:39)
[2023-12-09] MEDS ORDERED: PYRIDIUM200 MG PO (19:48)
[2023-12-09] MEDS ORDERED: CEFDINIR300 MG PO (19:48)
[2023-12-09] MEDS ORDERED: ONDANSETRON ODT4 MG SL (19:48)
[2023-12-09 19:59] VITALS: BP 133/66; PULSE 68; RESP 16; O2SAT 97
== END 2023-12-09 20:04 | disposition home or self-care (01) ==
LOC: ER 16:28
DX: R10.30 Lower abdominal pain, unspecified (principal); N30.91 Cystitis, unspecified with hematuria; R30.0 Dysuria; K57.90 Diverticulosis of intestine, part unspecified, without perforation or abscess without bleeding; I10 Essential (primary) hypertension; E11.9 Type 2 diabetes mellitus without complications; I48.91 Unspecified atrial fibrillation; K21.9 Gastro-esophageal reflux disease without esophagitis; M54.9 Dorsalgia, unspecified; G89.29 Other chronic pain; Z95.1 Presence of aortocoronary bypass graft
CPT/HCPCS: 36415; 74177; 80053; 81001; 85025; 87086; 99284; J2405; Q9967